=== PATIENT | male | born 1935 | race Caucasian/White ===

== ENCOUNTER 2022-05-07 14:41 | Inpatient (IN) | payer OTHER ==
--- OUTSIDE RECORDS SUMMARY | 2022-05-07 14:45 | XMS REPORT | Continuity of Care Document ---
:1935 Author Organization [facility] t Address [address] [place] [address] Care Team Providers Name Role Phone Norbert Castillo Primary Care Physician Norbert Castillo Attending Clinician Thu BRYAN Attending Clinician Marco Zee MD Attending Clinician Gerard Lee MD Attending Clinician Christin FERNANDEZ Attending Clinician Janel BRYAN, Russell Attending Clinician MD JANEL N. Attending Clinician Unavailable Genesis Attending Clinician Unavailable CHRISTIN Admitting Clinician Unavailable DO CHRISTIN Admitting Clinician Unavailable BAYLEE Admitting Clinician Unavailable Genesis Admitting Clinician Unavailable Payers Payer Name Policy Type Policy Number Effective Date Expiration Date S pio [facility] [place] - [id number] 2019 [employer] 00:00:00 (MEDICARE REPLACEMENT/ADVANT AGE - HMO) Problems Condition Condition Condition Status Onset Resolution Last Treating Co mments Source Name Details Category Date Date Treatment Clinician Date Tenderness Tenderness Disease Active 2020-10 Last M ethodi of left of left 0-[address] calf calf 00:00: t & Plan: Hospita 00 Formattin l g of this note might be different from the original. Mild calf tendernes s. Due to slow onset and symptoms today patient is instructe d to obtain ultrasoun d of lower extremity to rule out DVT. Agreeable with plan.Foll ow up imaging results. Pneumonia Pneumonia Disease Active Met hodi due to due to 5-20 st COVID-19 COVID-19 00:00: Hospit a virus virus 00 l Thrush Thrush Disease Active [facility] 1-04 st 00:00: Hospita 00 l Nutritiona Nutritiona Disease Active Last M ethodi l l 1-[address] deficiency deficiency 00:00: t & Plan: Hospita 00 Formattin l g of this note might be different from the original. At risk for nutrition al deficienc y. Tongue and dermatiti s symptoms could be due to pellagra or niacin deficienc y. Recommend ed B12 complex + zinc supplemen t. Follow up for recheck in 1 month TIA TIA Disease Active [facility] (transient (transient 2-18 st ischemic ischemic 00:00: Hospit a attack) attack) 00 l DDD DDD Disease Active [facility] (degenerat (degenerat 4-22 st dmitriy disc dmitriy disc 00:00: Hospit a disease), disease), 00 l lumbar lumbar Spinal Spinal Disease Active [facility] stenosis stenosis 3-28 st of lumbar of lumbar 00:00: Hosp neeta region region 00 l without without neurogenic neurogenic claudicati claudicati on on Cerebrovas Cerebrovas Disease Active 2017-10 M ethodi cular cular 2-29 st accident accident 00:00: Hospit a (CVA) (CVA) 00 l Ceruminosi Ceruminosi Disease Active 2017-10 M ethodi s, s, 105 st bilateral bilateral 00:00: Hosp neeta 00 l Bilateral Bilateral Disease Active 2017-10 Met hodi hand pain hand pain 1 st 00:00: Hospita 00 l Rheumatoid Rheumatoid Disease Active 2017-10 M ethodi factor factor 1 st positive positive 00:00: Hospit a 00 l Low Low Disease Active 2017-10 Methodi vitamin vitamin [address] B12 level B12 level 00:00: Hosp neeta 00 l High blood High blood Disease Active 2017-10 M ethodi triglyceri triglyceri [address] brenda brenda 00:00: Hospita 00 l Abnormal Abnormal Disease Active 2017-10 Metho di x-ray x-ray 10-17 st 00:00: Hospita 00 l Paresthesi Paresthesi Disease Active 2017-10 M ethodi as/numbnes as/numbnes 0- st s s 00:00: Hospita 00 l Abnormal Abnormal Disease Active 2017-10 Metho di glucose glucose 0 st 00:00: Hospita 00 l Screening Screening Disease Active 2017-10 Met hodi for for 0 prostate prostate 00:00: Hospit a cancer cancer 00 l CKD CKD Disease Active [facility] (chronic (chronic 05-10 kidney kidney 00:00: Hospita disease) disease) 00 l stage 3, stage 3, GFR 30-59 GFR 30-59 ml/min ml/min Actinic Actinic Disease Active Methodi dermatitis dermatitis 01-08 00:00: Hospita 00 l Calculus Calculus Disease Active Metho di of common of common 01-08 duct with duct with 00:00: Hosp neeta obstructio obstructio 00 l n n Essential Essential Disease Active Met hodi hypertensi hypertensi 01-08 on on 00:00: Hospita 00 l Visual Visual Disease Active [facility] field field 01-08 defect defect 00:00: Hospita 00 l Allergies, Adverse Reactions, Alerts Allergy Allergy Status Severity Reaction(s) Onset Inactive Treating Comm ents Source Name Type Date Date Clinician Katerin Mueller Active Rash 2013-10 cipro Method i xacin ty to 11-14 st adverse 00:00: Hospita reaction 00 l s to drug Family History Family Member Diagnosis Comments Start Date Stop Date Source Natural father Cancer [facility] Natural mother Cancer [facility] Paternal grandfather Cancer [facility] Paternal uncle Cancer [facility] Social History Social Habit Start Date Stop Date Quantity Comments Source Alcohol intake 2021-07-26 2021-07-26 Current [facility] 00:00:00 00:00:00 non-drinker of Hospital alcohol (finding) Tobacco use and 2016-05-03 2016-05-03 Former smokeless Met [facility] exposure 00:00:00 00:00:00 tobacco user Hospital History of 1991-12-10 Smoker [facility] tobacco use 00:00:00 Hospital Sex Assigned At [birth year] [facility] 00:00:00 00:00:00 Hospital Smoking Status Start Date Stop Date Source Ex-smoker 2016-05-03 00:00:00 2016-05-03 00:00:00 [facility] Medications Ordered Filled Start Stop Current Ordering Indication Dosage Frequency Signature Comments Components Source Medication Medication Date Date Medication? Clinician (SIG) Name Name ousmane 2020-10 Yes [id number] TAKE 1 Methodi n (LIPITOR) 2-[address] 80 MG 00:00: MOUTH Hospita tablet 00 DAILY l multivitami 2020-10 Yes 1{tbl} QD Take 1 Me thodi n with 0-[address] minerals 08:59: mouth Hospita tablet 38 daily. l aspirin 2020-10 Yes 325mg QD Take 325 Metho di (ECOTRIN) 0-[address] 325 MG 08:59: mouth Hospita enteric 38 daily. l coated tablet gabapentin 2020-10 Yes TAKE 1 Metho di (NEURONTIN) 0-[address] 300 mg 00:00: MOUTH Hospita capsule 00 THREE l TIMES DAILY gabapentin 2020- No TAKE 1 Meth anastasiya (NEURONTIN) 9- 10-12 CAPSULE BY s t 300 mg 00:00: 00:00 MOUTH Hospita capsule 00 :00 THREE l TIMES DAILY atorvastati 2020- No [id number] TAKE 1 Methodi n (LIPITOR) 8-09-[address] 80 MG 00:00: 00:00 MOUTH Hospita tablet 00 :00 DAILY l metFORMIN Yes [id number] TAKE 1 M ethodi (GLUCOPHAGE 6-[address] ) 500 mg 00:00: MOUTH Hospita tablet 00 TWICE l DAILY WITH MEALS predniSONE 2020- No 20mg QD Take 1 Meth anastasiya (DELTASONE) 03-03 06-02 tablet (20 s t 20 mg 00:00: 04:59 mg total) Hospit a tablet 00 :00 by mouth l daily for 10 days. azithromyci 2020- No Take 2 Met hodi n 5- 05-[address] (Zithromax 00:00: 04:59 (500 mg Hos mirella Z-Ezio) 250 00 :00 total) by l MG tablet mouth daily for 1 day, THEN 1 tablet (250 mg total) daily for 4 days. atorvastati 2020- No [id number] TAKE 1 Methodi n (LIPITOR) 4-29 08-[address] 80 MG 00:00: 00:00 MOUTH Hospita tablet 00 :00 DAILY l atorvastati 2020- No [id number] TAKE 1 Methodi n (LIPITOR) 11-[address] 80 MG 00:00: 17:06 MOUTH Hospita tablet 00 :25 DAILY l zinc 2021- No [id number] 50mg QD Take 1 Method i gluconate 10-16 tablet (50 st 50 mg 00:00: 05:59 mg total) Hospit a tablet 00 :00 by mouth l daily. b complex 2021- No [id number] 1{tbl} QD Take 1 Methodi vitamins (B 10-[address] Complex-Vit 00:00: 05:59 mouth Hosp neeta toribio B12) 00 :00 daily. l tablet gabapentin 2019-10- No 300mg Q.[id number] Take 1 [facility] (NEURONTIN) 06-[id number] 300 mg 00:00: 18:05 3D (300 mg Hospita capsule 00 :51 total) by l mouth 3 (three) times a day. blood-gluco 2019-10 Yes [id number] Check BS Methodi se meter 0-[address] kit 00:00: day Hospita 00 l metFORMIN 2020- No [id number] 500mg Q.5D Take 1 [facility] (GLUCOPHAGE 06-[address] ) 500 mg 00:00: 21:37 (500 mg Hospi ta tablet 00 :35 total) by l mouth 2 (two) times a day with meals. triamcinolo 2020- No [id number] Q.5D Apply Methodi ne 6-[address] (KENALOG) 00:00: 04:59 2 (two) Hosp neeta 0.1 % cream 00 :00 times a l day. cyclobenzap Yes [id number] Take one Methodi rine 2-[address] (FLEXERIL) 00:00: bedtime. Hos mirella 5 mg tablet 00 l Immunizations Ordered Immunization Filled Immunization Date Status Commen ts Source Name Name FLUZONE HIGH-DOSE PF 2020-08-14 Completed [facility] 00:00:00 Hospital Pneumococcal 2019-04-29 Completed [facility] Polysaccharide 00:00:00 Hospital Pneumococcal, 2014-08-13 Completed [facility] Unspecified 00:00:00 Hospital Vital Signs Vital Name Observation Time Observation Value Comments Source Systolic blood 2021-07-26 13:57:00 144 mm[Hg] [facility] pressure Diastolic blood 2021-07-26 13:57:00 78 mm[Hg] [facility] pressure Heart rate 2021-07-26 13:57:00 76 /min [facility] Body temperature 2021-07-26 13:57:00 36.72 Damaris [facility] Respiratory rate 2021-07-26 13:57:00 16 /min [facility] Body height 2021-07-26 13:57:00 172.7 cm [facility] Body weight 2021-07-26 13:57:00 80.74 kg [facility] BMI 2021-07-26 13:57:00 27.06 kg/m2 [facility] Oxygen saturation in 2021-07-26 13:57:00 98 /min [facility] Arterial blood by Pulse oximetry Procedures Procedure Date / Time Performing Clinician Source Performed XR SHOULDER 2+ VW RIGHT 2021-07-25 17:12:39 Corazon Rosario [facility] POC GLUCOSE 2021-03-03 21:21:00 [facility] SPUTUM CULTURE 2021-03-03 20:02:00 [facility] FUNG[facility] 2021-03-03 20:02:00 Norberto Cross [facility] ospital GRAM STAIN 2021-03-03 20:02:00 Norberto Cross [facility] POC GLUCOSE 2021-03-03 15:46:00 Juan Islas [facility] POC GLUCOSE 2021-03-03 12:13:00 [facility] CT CHEST WO CONTRAST 2021-03-03 01:47:43 Norberto Cross [facility] POC GLUCOSE 2021-03-03 01:44:00 [facility] POC GLUCOSE 2021-03-02 21:09:00 [facility] POC GLUCOSE 2021-03-02 15:54:00 [facility] POC GLUCOSE 2021-03-02 12:24:00 [facility] POC GLUCOSE 2021-03-02 01:25:00 [facility] POC GLUCOSE 2021-03-01 22:00:00 [facility] XR CHEST 1 VW PORTABLE 2021-03-01 18:32:05 [facility] BLOOD CULTURE, AEROBIC & 2021-03-01 17:51:00 [facility] ANAEROBIC HC COMPLETE BLD COUNT 2021-03-01 17:51:00 [facility] W/AUTO DIFF PROTHROMBIN TIME WITH INR 2021-03-01 17:51:00 [facility] COMPREHENSIVE METABOLIC 2021-03-01 17:51:00 [facility] PANEL TROPONIN 2021-03-01 17:51:00 [facility] B NATRIURETIC PEPTIDE 2021-03-01 17:51:00 [facility] ESTIMATED GFR 2021-03-01 17:51:00 [facility] BLOOD CULTURE, AEROBIC & 2021-03-01 17:45:00 [facility] ANAEROBIC MA CRITICAL CARE, E/M 2021-03-01 17:41:03 [facility] 30-74 MINUTES ECG ED PRELIMINARY 2021-03-01 17:41:03 [facility] INTERPRETATION COVID-19 QUALITATIVE 2021-03-01 17:41:00 [facility] RT-PCR ECG 12-LEAD 2021-03-01 17:31:53 Brian Bullock [facility] spital Plan of Care Planned Activity Planned Date Details Comments Source Future Scheduled 2021-10-03 COVID-19 VACCINE (1) [facility] Test 02:33:54 [code = COVID-19 VACCINE (1)] Future Scheduled 2021-10-03 SHINGLES VACCINES (#1) [facility] Test 02:33:54 [code = SHINGLES VACCINES (#1)] Future Scheduled 2021-10-03 65+ PNEUMOCOCCAL Methodi [facility] Test 02:33:54 VACCINE (2 of 2 - PCV13) [code = 65+ PNEUMOCOCCAL VACCINE (2 of 2 - PCV13)] Future Scheduled 2021-10-03 INFLUENZA VACCINE [facility] Test 02:33:54 [code = INFLUENZA VACCINE] Encounters Start End Encounter Admission Attending Care Care Encounter Source Date/Time Date/Time Type Type Clinicians Facility Department ID 2021-09-12 2021-09-12 Refjamie Ragland, 1.2.840.1 [id number] Method[facility] 00:00:00 00:00:00 Elio Toussaint 51953.1.1 171 s t 3.430.2.7 Hospit a .3.656096 l .8 2021-07-31 2021-07-31 Travel 1.2.840.1 1.2.196.293 [id number] Methodi 00:00:00 00:00:[address] 3.430.2.7 0.2.7.3.698 Ho spita .3.462443 084.8 l .8 2021-07-26 2021-07-26 Office Thu, 1.2.840.1 [id number] Methodi 08:51:58 09:23:27 Visit Ramo [address]6038.1.[address] 3.430.2.7 Hospit a .3.918771 l .8 2021-07-25 2021-07-25 [facility], 1.2.840.1 [id number] Methodi 11:29:00 15:50:00 Obed Lara [address].1.[address] 3.430.2.7 Hospit a .3.665056 l .8 2021-07-25 2021-07-25 Travel 1.2.840.1 1.2.529.930 [id number] Methodi 00:00:00 00:00:[address] 3.430.2.7 0.2.7.3.698 Ho spita .3.245188 084.8 l .8 2021-07-25 2021-07-25 Orders Andino, 1.2.840.1 [id number] Methodi 00:00:00 00:00:00 Only Ramo [address]82.1.[address] 3.430.2.7 Hospit a .3.217711 l .8 2021-07-24 2021-07-24 Refill Ellyn, 1.2.840.1 [id number] Methodi 00:00:00 00:00:00 Elio Toussaint 93661.1.1 102 s t 3.430.2.7 Hospit a .3.749069 l .8 2021-06-13 2021-06-13 Refill Ellyn, 1.2.840.1 [id number] Methodi 00:00:00 00:00:00 Elio Toussaint 74089.1.1 591 s t 3.430.2.7 Hospit a .3.967889 l .8 2021-05-22 2021-05-22 Refill Ellyn, 1.2.840.1 [id number] Methodi 00:00:00 00:00:00 Elio Toussaint 91373.1.1 244 s t 3.430.2.7 Hospit a .3.843323 l .8 2021-03-30 2021-03-30 Refill Ellyn, 1.2.840.1 [id number] Methodi 00:00:00 00:00:00 Elio Toussaint 28881.1.1 989 s t 3.430.2.7 Hospit a .3.862740 l .8 2021-03-01 2021-03-03 [facility] Lucho Lee 1.2.840.1 [id number] Methodi 12:22:00 20:15:00 James Wayne [address]457.1.[address] [facility] Juan N. 3.430.2.7 Hospita .3.095945 l .8 2021-02-08 2021-02-08 Refill Ellyn, 1.2.840.1 [id number] Methodi 00:00:00 00:00:00 Elio J. 21796.1.1 948 s t 3.430.2.7 Hospit a .3.992001 l .8 2020-10-16 2020-10-16 Outpatient ANDINO, [facility] [id number] 00:00:00 00:00:00 RAMO [address] 2020-08-21 2020-08-21 Outpatient ELLYN, [facility] [id number] 00:00:00 00:00:00 ELIO [address] 2020-08-14 2020-08-14 Outpatient ELLYN, [facility] [id number] 00:00:00 00:00:00 LEIO [address] 2020-03-16 2020-03-16 Outpatient ELLYN, [facility] [id number] 00:00:00 00:00:00 ELIO [address] 2019-12-07 2019-12-07 Outpatient ELLYN, [facility] [id number] 00:00:00 00:00:00 ELIO [address] 2019-11-30 2019-12-02 Outpatient BERBERIAN, [facility] [id number] [place] 00:00:00 00:00:00 JUAN [address] 2019-12-01 2019-12-01 Outpatient Miller_S_AH VFP VFP [id number] [id number] [facility] 07:21:00 07:21:00 72366 Family Practic e 2019-12-01 2019-12-01 Outpatient Miller_S_AH VFP VFP 795 [id number] [facility] 07:21:00 07:21:00 [id number] Family Practic e Results Test Description Test Time Test Comments Results Result Comments Source ECG 12 lead 2021-03-08 06:07:05 Test Item Value Reference Range Interpretation Comme nts Ventricular rate (test code = 253) Atrial rate (test code = 255) MA interval (test code = 266) QRSD interval (test code = 260) QT interval (test code = 264) QTC interval (test code = 265) P axis 1 (test code = 267) QRS axis 1 (test code = 268) T wave axis (test code = 270) EKG impression (test code = 273) Normal sinus rhythm-Inferior infar ct (cited on or before 08-JUN-2014)-Anterior infarct (cited on or before 08-JUN-2014)-Abnormal ECG-In automated comparison with ECG of 30-NOV-2019 07:51,-Nonspecific T wave abnormality no longer evident in Inferior leads- Beto PowellARS-CoV-2 (COVID-19) RNA [Presence] in Respiratory specimen by GALEN with probe [id number] 19:44:41 Test Item Value Reference Range Interpretation Comments SARS-CoV-2 (COVID-19) RNA Not detected Not-Detected [Presence] in Respiratory specimen by GALEN with probe detection (test code = 97044-6) Whether patient is employed in a healthcare setting (test code = 77239-5) Whether the patient has symptoms related to condition of interest (test code = 11038-9) Patient was hospitalized because of this condition (test code = 20632-8) Whether the patient was admitted to intensive care unit (ICU) for condition of interest (test code = 06300-3) Whether patient resides in a congregate care setting (test code = 69700-4)
[2022-05-07 15:52] LABS: Absolute Lymphocytes (CBC) 0.7 K/uL (0.7-4.9); Hematocrit 49.6 % (39.6-49.0); Lymphocytes % 7.3 % (15.3-44.8); MCV 92.4 fL (80-100); MPV 10.5 fL (7.6-11.3); RBC Red Blood Cell Count 5.37 M/uL (4.33-5.43)
[2022-05-07 16:13] LABS: Albumin 3.4 g/dL (3.4-5.0); Bilirubin Direct 0.5 mg/dL (0-0.2); Bilirubin Total 0.9 mg/dL (0.2-1.0); Magnesium 2.6 mg/dL (1.8-2.4); Potassium 3.8 mmol/L (3.5-5.1); Protein, Total 7.6 g/dL (6.4-8.2)
[2022-05-07 16:36] LABS: Troponin High Sensitivity 65.5 pg/mL (<58.9)
--- NOTE | 2022-05-07 16:51 | RAD REPORT ---
EXAM DESCRIPTION: RAD - Chest Single View - 05/07/2022 4:25 pm CLINICAL HISTORY: DYSPNEA, found down for unknown duration COMPARISON: None TECHNIQUE: AP portable chest image was obtained 05/07/2022 4:25 pm . FINDINGS: Lung volumes are low. No focal right lung field finding. Hazy opacification in the left ba se is seen partially obscuring the left hemidiaphragm. Upper left lung field is clear. Heart and vasculature are normal. No measurable pleural effusion and no pneumothorax. No acute bony abnormality seen. No acute aortic findings suspected. IMPRESSION: Limited portable study with suspected left lung base aspiration or infectious pneumonia
--- NOTE | 2022-05-07 16:52 | RAD REPORT ---
EXAM DESCRIPTION: RAD - Pelvis - 05/07/2022 4:25 pm CLINICAL HISTORY: possible fall, found on ground AMS COMPARISON: No comparisons TECHNIQUE: AP imaging of the pelvis was obtained. FINDINGS: No fracture of the bony pelvis. No fracture, dislocation or other acute hip joint finding. Each femoral neck is partially obscured due to overlapping intertrochanteric bony structures. No sig nificant SI joint findings. No soft tissue abnormality. IMPRESSION: Negative pelvis for acute or significant findings.
[2022-05-07] MEDS ORDERED: Ringers Lactate 2,000 ML IV ONE (17:03)
--- NOTE | 2022-05-07 17:03 | ER ---
Nurse's Notes [facility] Name: Bj Galo Age: 87 yrs Sex: Male : 1935 Arrival Date: 05/07/2022 Time: 14:43 Bed 14 Private MD: Diagnosis: Acute kidney failure, unspecified;Altered mental status, unspecified;Rhabdomyolysis;Pneumonia, unspecified organism;SARS-associated coronavirus as the cause of diseases classified elsewhere Presentation: 05/07 15:12 Chief complaint: Family was unable to contact him for a few days, found down on floor hb this morning. Last known normal unknown. AOx4 at baseline, currently alert in wheelchair but unable to answer questions. Coronavirus screen: At this time, the client does not indicate any symptoms associated with coronavirus-19. Ebola Screen: No symptoms or risks identified at this time. 15:12 Method Of Arrival: Wheelchair hb 15:16 Onset of symptoms was May 07, 2022. hb 15:16 Acuity: DENNIS 2 hb 19:00 Initial Sepsis Screen: Does the patient meet any 2 criteria? No. Patient's initial ke1 sepsis screen is negative. Does the patient have a suspected source of infection? No. Patient's initial sepsis screen is negative. 19:38 Risk Assessment: Do you want to hurt yourself or someone else? Patient reports no ke1 desire to harm self or others. Historical: - Allergies: 15:16 No Known Allergies; hb - Social history:: Smoking status: unknown. Screenin:16 Abuse screen: Denies threats or abuse. Nutritional screening: No deficits noted. tp1 Tuberculosis screening: No symptoms or risk factors identified. Fall Risk Fall in past 12 months (25 points). IV access (20 points). Ambulatory Aid- None/Bed Rest/Nurse Assist (0 pts). Gait- Weak (10 pts.). Mental Status- Overestimates/Forgets Limitations (15 pts.). Total Vu Fall Scale indicates High Risk Score (45 or more points). Fall prevention measures have been instituted. Side Rails Up X 2 Placed Close to Nursing Station Family Present and informed to notify staff if the need to leave the bedside As available patient and family educated on Fall Prevention Program and Strategies. Assessment: 15:16 General: Appears in no apparent distress. Behavior is calm, drowsy, knows name and tp1 place, but unable to verbalize date of or situation. response to yes or no questions. . 15:16 Pain: Denies pain. Neuro: Parker Agitation-Sedation Scale (RASS): -1 Drowsy Level of tp1 Consciousness is confused, Oriented to person, place, Jack Winder are unable to assess due to PT appearing drowsy . Weakness in bilateral leg(s) able to raise bilateral arms. Gait is unable to assess due to PT appearing drowsy. Speech unable to assess due to PT appearing drowsy . unable to assess due to PT appearing drowsy . Pupils are PERRLA. Cardiovascular: Patient's skin is warm and dry. Respiratory: Airway is patent Respiratory effort is even, unlabored. GI: Abdomen is flat, distended. : Parent/caregiver report the patient having found in a puddle of urine at home. EENT: No signs and/or symptoms were reported regarding the EENT system. Derm: Skin is pink, warm \T\ dry. abrasion noted on right elbow and back of head. Musculoskeletal: Range of motion: limited in bilateral legs. 16:23 Reassessment: Patient appears in no apparent distress at this time. No changes from tp1 previously documented assessment. Patient and/or family updated on plan of care and expected duration. Pain level reassessed. Patient is alert, oriented x 3, equal unlabored respirations, skin warm/dry/pink. 17:25 Reassessment: Patient appears in no apparent distress at this time. No changes from tp1 previously documented assessment. Patient and/or family updated on plan of care and expected duration. Pain level reassessed. Patient is alert, oriented x 3, equal unlabored respirations, skin warm/dry/pink. received VO from Mauricio FAUSTIN to insert casper. 18:06 Reassessment: resting with eyes closed. appears to be in no distress. respirations even tp1 and unlabored. hospitalist at bedside speaking to family. 18:13 Reassessment: pt umair Patrick PHONE NUMBER [phone]. vg1 19:11 Reassessment: Patient appears in no apparent distress at this time. No changes from tp1 previously documented assessment. Patient and/or family updated on plan of care and expected duration. Pain level reassessed. Patient is alert, oriented x 3, equal unlabored respirations, skin warm/dry/pink. warm blankets provided. Vital Signs: 15:12 BP 121 / 75; Pulse 83; Resp 16; Temp 98.2(TE); Pulse Ox 96% on R/A; hb 15:16 BP 94 / 75; Pulse 82; Resp 80; Pulse Ox 94% on R/A; tp1 15:30 BP 145 / 68; Pulse 76; Resp 18; Pulse Ox 92% on R/A; tp1 16:15 BP 118 / 74; Pulse 77; Resp 26; Pulse Ox 93% on R/A; tp1 17:30 BP 137 / 55; Pulse 68; Resp 17; Pulse Ox 94% on R/A; tp1 19:42 BP 119 / 61; Pulse 72; Resp 14; Pulse Ox 95% on R/A; ke1 [place] Coma Score: 15:36 Eye Response: to voice(3). Verbal Response: oriented(5). Motor Response: obeys jr8 commands(6). Total: 14. ED Course: 14:37 Initial lab(s) drawn, by me, sent to lab. First set of blood cultures drawn. Missed tp1 attempt(s): 20 gauge in right antecubital area. Bleeding controlled, band aid applied, catheter tip intact. 14:43 Patient arrived in ED. am2 15:16 [facility] jr8 15:16 Paddy Razo MD is Attending Physician. jr8 15:16 Triage completed. hb 15:16 Arm band placed on. hb 15:24 Placed in gown. Bed in low position. Call light in reach. Side rails up X 1. Door mb7 closed. Noise minimized. Warm blanket given. 15:24 Client placed on continuous cardiac and pulse oximetry monitoring. NIBP monitoring mb7 applied. bit gatherer on. 15:28 Alma Poon, RN is Primary Nurse. vg1 15:35 EKG done, by ED staff, reviewed by Qasim FAUSTIN. em1 15:57 Missed attempt(s): 20 gauge in left antecubital area. Bleeding controlled, band aid tp1 applied, catheter tip intact. 16:23 Primary Nurse role handed off by Alma Poon, RN tp1 16:23 Jocelyn Ramachandran, MAXIMILIANO is Primary Nurse. tp1 16:26 XRAY Chest (1 view) In Process Unspecified. EDMS 16:26 XRAY Pelvis In Process Unspecified. EDMS 16:42 Inserted saline lock: 22 gauge in left antecubital area, using aseptic technique. vg1 16:58 CT Head C Spine In Process Unspecified. EDMS 16:58 CT Abd/Pelvis - Without Contrast In Process Unspecified. EDMS 17:01 Scot Max is Hospitalizing Provider. jr8 17:45 Casper cath inserted, using sterile technique, 16 Fr., by mn, balloon inflated, to tp1 gravity drainage, urine specimen collected. other 400 mL joelle colored urine drained. 05/08 03:01 Notified Nurse Practitioner and/or Physician Hydrographer of a critical lab result(s), bb DDimer of [phone] More FAUSTIN notified. 03:14 Notified Nurse Practitioner and/or Physician Hydrographer of a critical lab result(s), bb troponin of 70 More FAUSTIN notified. 03:26 Notified Nurse Practitioner and/or Physician Hydrographer of a critical lab result(s), CPK bb [id number], AST 418 More FAUSTIN notified. Administered Medications: 05/07 15:19 Drug: Ringers - Lactated Ringers Solution 1000 ml Route: IV; Rate: bolus; Site: left tp1 antecubital; 19:47 Follow up: IV Status: Completed infusion ke1 18:29 Drug: Rocephin (cefTRIAXone) 1 grams Route: IV; Rate: calculated rate; Site: left tp1 antecubital; 18:49 Follow up: Response: No adverse reaction; IV Status: Completed infusion; IV Intake: tp1 100ml 18:50 Drug: Zithromax (azithromycin) 500 mg Route: IVPB; Infused Over: 1 hrs; Site: left tp1 antecubital; 19:48 Follow up: Response: No adverse reaction; IV Status: Completed infusion ke1 19:48 Drug: Ringers - Lactated Ringers Solution 1000 ml Route: IV; Rate: 150 ml/hr; Site: ke1 left antecubital; Intake: 18:49 IV: 100ml; Total: 100ml. tp1 Outcome: 17:02 Decision to Hospitalize by Provider. jr8 05/08 17:42 Patient left the ED. iw Signatures: Dispatcher [employer] Sandra Guevara RN RN bb Jazzmine Brice RN Erik Do em1 Qaism Martínez PA PA jr8 Kathleen Garzon RN Daphne Cali am2 Alma Poon RN RN vg1 Jocelyn Ramachandran RN RN tp1 Shelley Dorsey mb7 Dawn Vargas, RN RN ke1 Corrections: (The following items were deleted from the chart) 05/07 16:31 16:15 BP 88 / 78; Pulse 77bpm; Resp 26bpm; Pulse Ox 93% RA; tp1 tp1 17:03 15:16 Derm: Skin is pink, warm \T\ dry. tp1 tp1 17:31 15:22 Ringers - Lactated Ringers Solution 1000 ml IV at 150 ml/hr in left antecubital tp1 tp1 18:02 15:16 Neuro: Level of Consciousness is awake, alert, confused, Oriented to person, tp1 place, Weakness in bilateral leg(s) able to raise bilateral arms. tp1 18:04 17:25 Reassessment: Patient appears in no apparent distress at this time. No changes tp1 from previously documented assessment. Patient and/or family updated on plan of care and expected duration. Pain level reassessed. Patient is alert, oriented x 3, equal unlabored respirations, skin warm/dry/pink. tp1 18:35 15:16 General: Appears in no apparent distress. comfortable, Behavior is calm, knows tp1 name and place, but unable to verbalize date of or situation. response to yes or no questions. . tp1 18:35 15:16 Neuro: Level of Consciousness is awake, alert, confused, Oriented to person, tp1 place, Jack Winder are unable to assess due to PT appearing drowsy . Weakness in bilateral leg(s) able to raise bilateral arms. Gait is unable to assess due to PT appearing drowsy. Speech unable to assess due to PT appearing drowsy . unable to assess due to PT appearing drowsy . Pupils are PERRLA, tp1 19:14 18:32 General: tp1 tp1 19:18 15:16 General: Appears in no apparent distress. Behavior is calm, drowsy, knows name tp1 and place, but unable to verbalize date of or situation. response to yes or no questions. . tp1 19:18 15:16 Neuro: Level of Consciousness is confused, Oriented to person, place, Jack Winder are tp1 unable to assess due to PT appearing drowsy . Weakness in bilateral leg(s) able to raise bilateral arms. Gait is unable to assess due to PT appearing drowsy. Speech unable to assess due to PT appearing drowsy . unable to assess due to PT appearing drowsy . Pupils are PERRLA, tp1
--- NOTE | 2022-05-07 17:03 | EDPHYS ---
Physician Documentation [facility] Name: Bj Galo Age: 87 yrs Sex: Male : 1935 Arrival Date: 05/07/2022 Time: 14:43 Bed 14 Private MD: ED Physician Paddy Razo HPI: 05/07 15:36 This 87 yrs old Male presents to ER via Wheelchair with complaints of Altered Mental jr8 Status. 15:36 The patient presents with confusion, decreased responsiveness. Onset: The jr8 symptoms/episode began/occurred at an unknown time. Possible causes: unknown. Associated signs and symptoms: The patient has no apparent associated signs or symptoms. Current symptoms: In the emergency department the patient's symptoms are unchanged from the initial presentation. Patient's baseline: Neuro: alert and fully oriented, Motor: no deficits, Ambulation: walks without assistance, Speech: normal. The patient has not experienced similar symptoms in the past. The patient has not recently seen a physician. Family stated that they last saw him about 4 to 5 days ago. Usually is very independent and has no neurologic deficits. Stated that he has had strokes in the past but again without deficits. They found patient on the ground with urine and raisin bran cereal next to him. Patient was negative at the time. Unknown how long he had been down. Patient altered and confused. Upon arrival patient alert to person and place but slow to respond.. Historical: - Allergies: 15:16 No Known Allergies; hb - Social history:: Smoking status: unknown. ROS: 15:36 Unable to obtain ROS due to altered mental status. jr8 Exam: 15:36 Eyes: Pupils equal round and reactive to light, extra-ocular motions intact. Lids and jr8 lashes normal. Conjunctiva and sclera are non-icteric and not injected. Cornea within normal limits. Periorbital areas with no swelling, redness, or edema. ENT: Nares patent. No nasal discharge, no septal abnormalities noted. Tympanic membranes are normal and external auditory canals are clear. Oropharynx with no redness, swelling, or masses, exudates, or evidence of obstruction, uvula midline. Mucous membranes moist. Neck: Trachea midline, no thyromegaly or masses palpated, and no cervical lymphadenopathy. Supple, full range of motion without nuchal rigidity, or vertebral point tenderness. No Meningismus. Cardiovascular: Regular rate and rhythm with a normal S1 and S2. No gallops, murmurs, or rubs. Normal PMI, no JVD. No pulse deficits. Respiratory: Lungs have equal breath sounds bilaterally, clear to auscultation and percussion. No rales, rhonchi or wheezes noted. No increased work of breathing, no retractions or nasal flaring. Abdomen/GI: Soft, non-tender, with normal bowel sounds. No distension or tympany. No guarding or rebound. No evidence of tenderness throughout. Skin: Warm, dry with normal turgor. Normal color with no rashes, no lesions, and no evidence of cellulitis. MS/ Extremity: Pulses equal, no cyanosis. Neurovascular intact. Full, normal range of motion. 15:36 Neuro: Orientation: to person, place, Mentation: able to follow commands, slow to respond, Memory: immediate memory is intact, remote memory is impaired, recent memory is impaired, Cranial nerves: extraocular movements are intact, Facial palsy and sensory deficits are absent. Speech is clear and appropriate. Motor: moves all fours, Sensation: no obvious gross deficits, seizure activity, is not displayed by the patient, Abnormal movements: there are no abnormal movements. 15:43 ECG was reviewed by the Attending Physician. jr8 Vital Signs: 15:12 BP 121 / 75; Pulse 83; Resp 16; Temp 98.2(TE); Pulse Ox 96% on R/A; hb 15:16 BP 94 / 75; Pulse 82; Resp 80; Pulse Ox 94% on R/A; tp1 15:30 BP 145 / 68; Pulse 76; Resp 18; Pulse Ox 92% on R/A; tp1 16:15 BP 118 / 74; Pulse 77; Resp 26; Pulse Ox 93% on R/A; tp1 17:30 BP 137 / 55; Pulse 68; Resp 17; Pulse Ox 94% on R/A; tp1 19:42 BP 119 / 61; Pulse 72; Resp 14; Pulse Ox 95% on R/A; ke1 [place] Coma Score: 15:36 Eye Response: to voice(3). Verbal Response: oriented(5). Motor Response: obeys jr8 commands(6). Total: 14. MDM: 15:16 Patient medically screened. jr8 16:59 Data reviewed: vital signs, nurses notes, lab test result(s), EKG, radiologic studies, [facility] CT scan, plain films. Data interpreted: Pulse oximetry: on room air is 93 %. Interpretation: normal. Counseling: I had a detailed discussion with the patient and/or guardian regarding: the historical points, exam findings, and any diagnostic results supporting the discharge/admit diagnosis, lab results, radiology results, the need for further work-up and treatment in the hospital. 05/07 15:31 Order name: Basic Metabolic Panel; Complete Time: 16:44 [facility] 05/07 15:31 Order name: CBC with Diff; Complete Time: 16:02 [facility] 05/07 15:31 Order name: LFT's; Complete Time: 16:44 [facility] 05/07 15:31 Order name: Magnesium; Complete Time: 16:44 [facility] 05/07 15:31 Order name: Troponin HS; Complete Time: 16:44 [facility] 05/07 15:31 Order name: Lactate; Complete Time: 16:44 [facility] 05/07 15:31 Order name: CK; Complete Time: 16:44 [facility] 05/07 15:31 Order name: Blood Culture Adult (2) [facility] 05/07 15:31 Order name: Urine Microscopic Only; Complete Time: 18:15 [facility] 05/07 15:33 Order name: AMMONIA; Complete Time: 16:16 [facility] 05/07 17:02 Order name: SARS-COV-2 Antigen Rapid; Complete Time: 17:55 05/07 17:55 Order name: Urine Dipstick-Ancillary; Complete Time: 17:58 [facility] 05/07 19:42 Order name: Lactate Sepsis 2 HR Follow-up; Complete Time: 21:59 [facility] 05/07 21:33 Order name: Glucose, Ancillary Testing; Complete Time: 21:59 [facility] 05/07 23:19 Order name: Troponin High Sensitivity; Complete Time: 03:01 05/08 05:57 Order name: Troponin High Sensitivity; Complete Time: 10:05 [facility] 05/08 05:57 Order name: CBC with Automated Diff; Complete Time: 10:05 05/08 05:57 Order name: D-Dimer; Complete Time: 10:05 [facility] 05/08 05:57 Order name: Comprehensive Metabolic Panel; Complete Time: 10:05 [place] 05/08 05:57 Order name: Phosphorus; Complete Time: 10:05 [facility] 05/08 05:57 Order name: Creatine Phosphokinase; Complete Time: 10:05 [facility] 05/08 05:57 Order name: Lipid Profile; Complete Time: 10:05 [facility] 05/08 05:57 Order name: C-Reactive Protein; Complete Time: 10:05 [facility] 05/08 05:57 Order name: Magnesium; Complete Time: 10:05 [facility] 05/08 05:57 Order name: Thyroid Stimulating Hormone; Complete Time: 10:05 [facility] 05/08 05:57 Order name: Ferritin; Complete Time: 10:05 [facility] 05/08 06:24 Order name: Glucose, Ancillary Testing; Complete Time: 10:[place] 05/08 10:22 Order name: Glucose, Ancillary Testing; Complete Time: 10:MS 05/08 12:53 Order name: Glucose, Ancillary Testing; Complete Time: 13:18 [place] 05/08 17:23 Order name: Glucose, Ancillary Testing; Complete Time: 17:32 [place] 05/07 15:31 Order name: XRAY Chest (1 view); Complete Time: 16:58 05/07 15:31 Order name: EKG; Complete Time: 15:32 05/07 15:31 Order name: Cardiac monitoring; Complete Time: 15:59 05/07 15:31 Order name: EKG - Nurse/Tech; Complete Time: 15:35 05/07 15:31 Order name: IV Saline Lock; Complete Time: 16:43 05/07 15:31 Order name: Labs collected and sent; Complete Time: 15:59 05/07 15:31 Order name: O2 Per Protocol; Complete Time: 15:59 05/07 15:31 Order name: O2 Sat Monitoring; Complete Time: 15:59 05/07 15:31 Order name: Urine Dipstick-Ancillary (obtain specimen); Complete Time: 18:03 05/07 15:31 Order name: CT Head C Spine; Complete Time: 17:10 05/07 15:31 Order name: XRAY Pelvis; Complete Time: 16:58 05/07 16:45 Order name: CT Abd/Pelvis - Without Contrast; Complete Time: 17:55 05/07 18:03 Order name: Judith; Complete Time: 18:03 vg1 05/08 07:16 Order name: FAUSTO; Complete Time: 10:05 EDMS EC:43 Rate is 76 beats/min. Rhythm is regular, Sinus Rhythm. AL interval is normal at 148 jr8 msec. QRS interval is normal at 96 msec. QT interval is normal at 454 msec. Q waves are Present in leads III, aVF. T waves are Flattened in leads I, aVL, V6. No ST changes noted. Clinical impression: NSR w/ Non-specific ST/T Changes. Interpreted by me. Reviewed by me. Administered Medications: 15:19 Drug: Ringers - Lactated Ringers Solution 1000 ml Route: IV; Rate: bolus; Site: left tp1 antecubital; 19:47 Follow up: IV Status: Completed infusion ke1 18:29 Drug: Rocephin (cefTRIAXone) 1 grams Route: IV; Rate: calculated rate; Site: left tp1 antecubital; 18:49 Follow up: Response: No adverse reaction; IV Status: Completed infusion; IV Intake: tp1 100ml 18:50 Drug: Zithromax (azithromycin) 500 mg Route: IVPB; Infused Over: 1 hrs; Site: left tp1 antecubital; 19:48 Follow up: Response: No adverse reaction; IV Status: Completed infusion ke1 19:48 Drug: Ringers - Lactated Ringers Solution 1000 ml Route: IV; Rate: 150 ml/hr; Site: ke1 left antecubital; Disposition Summary: 05/07/22 17:02 Hospitalization Ordered Hospitalization Status: Inpatient Admission jr8 Provider: Scot Max Condition: Fair jr8 Problem: new jr8 Symptoms: are unchanged jr8 Bed/Room Type: Standard 8 Location: Telemetry/MedSurg (Inpatient)(05/08/22 15:14) bd Room Assignment: 422(05/08/22 15:14) bd Diagnosis - Acute kidney failure, unspecified jr8 - Altered mental status, unspecified jr8 - Rhabdomyolysis jr8 - Pneumonia, unspecified organism jr8 - SARS-associated coronavirus as the cause of diseases classified elsewhere jr8 Forms: - Medication Reconciliation Form jr8 - SBAR form jr8 Signatures: Dispatcher [employer] EDMS Chana Yang Josh, PA PA jr8 Kathleen Garzon, RN RN Kadeem Trevino RN RN jl7 Alma Poon, RN RN vg1 Jocelyn Ramachandran RN RN tp1 Dawn Vargas RN RN ke1 Arianne Peace PA PA sb3 Corrections: (The following items were deleted from the chart) 19:05 17:02 Telemetry/MedSurg (Inpatient) [facility] jl7 19:05 17:02 [facility] jl7 05/08 15:14 05/07 19:05 [facility] ER [address] 05/08 15:14 05/07 [facility]
--- NOTE | 2022-05-07 17:08 | RAD REPORT ---
EXAM DESCRIPTION: CT - [id number] - 05/07/2022 4:56 pm CLINICAL HISTORY: AMS COMPARISON: No comparisons TECHNIQUE: Axial 5 mm thick images of the head were obtained. Axial 2 mm thick images of the cervic al spine were obtained with sagittal and coronal reconstruction images generated and reviewed. All CT scans are performed using dose optimization technique as appropriate and may include automated exposure control or mA/KV adjustment according to patient size. FINDINGS: No intracranial hemorrhage, mass, edema or acute intracranial finding. No acute cortical b ased infarction. No cortical edema or sulcal effacement. Moderate severity atrophy is present primari ly involving each frontal lobe. Ventricles are in proportion to volume loss. Chronic ischemic changes mild for age. Dense arterial tree calcifications are present. No extra-axial fluid collections. Mast oid air cells and paranasal sinuses are clear. No globe or orbit abnormality seen. Cervical body height and alignment are normal. Mild C4-5 disc space narrowing. Moderate disc space na rrowing C5-6 and C6-7. Facet joint degenerative changes are present. Advanced right-sided facet joint degenerative change causes significant bony foraminal stenosis. Mild bony foraminal encroachment at C4-5 with moderate severity bilateral C5-6 and C6-7 foraminal stenosis. No fracture or acute bony abn ormality. Central canal detail is inherently limited. No paraspinal mass or hematoma. IMPRESSION: Moderate severity atrophy and mild chronic ischemic changes are present. No acute intrac ranial finding identifiable. No fracture or acute cervical spine finding. Degenerative changes are present with multilevel bony fo raminal stenosis.
--- NOTE | 2022-05-07 17:13 | RAD REPORT ---
EXAM DESCRIPTION: CT - Abdomen Pelvis Wo Contrast - 05/07/2022 4:56 pm CLINICAL HISTORY: AMS, Elevated LFTs COMPARISON: No comparisons TECHNIQUE: Axial [address] imaging of the abdomen and pelvis was performed without IV contrast. No IV contrast was given because of allergy, abnormal renal function, patient refusal or physician re quest. No oral contrast administered peer All CT scans are performed using dose optimization technique as appropriate and may include automated exposure control or mA/KV adjustment according to patient size. FINDINGS: Motion degradation limits the lung base assessment. Prominent posterior calcified pleural plaques present without mass component. Fibrotic stranding is seen. No cardiomegaly or pericardial ef fusion. The liver, spleen and pancreas show no suspicious findings on non-contrast imaging. Cholecystectomy c lips are present. No biliary tree dilatation. No hydronephrosis or suspicious renal mass. A 3.2 centimeter low-density mass in the lateral mid righ t kidney is almost certainly a cyst. There is a 7 centimeter and 3.6 centimeter homogeneous fluid att enuation mass projecting from the lower pole left kidney. Again these are almost certainly cysts. No significant adrenal finding. Isodense renal masses and pyelonephritis cannot be excluded in the absen ce of IV contrast. The urinary bladder is without significant finding. No dilated bowel loops or bowel wall thickening. Moderate stool volume distends the rectum to 5-6 cm. There is prominent sigmoid diverticulosis without diverticulitis. No free air, free fluid or inflamm atory stranding. No mass or bulky lymphadenopathy. No omental thickening. Small fat filled left ingui nal hernia is present. Disc and bone degenerative changes are present. Dense arterial tree calcifications are present. There is an irregularly-shaped approximately 4.5 cm i nfrarenal abdominal aortic aneurysm. No centrally displaced calcifications. Aneurysm is not fully ass essed on a noncontrast study. There is no fluid or stranding in the adjacent fatty tissues. IMPRESSION: Non-contrast enhanced CT abdomen and pelvis imaging show no acute finding. Patient does have an irregularly-shaped 4.5 cm infrarenal abdominal aortic aneurysm. The aneurysm is not fully assessed on a noncontrast study. No periaortic abnormality to suggest leakage or rupture. Full assessment is limited is the absence of IV contrast.
[2022-05-07] MEDS ORDERED: LIDOCAINE VISCOUS 2% SOLN 15 ML UDC ONE (17:46)
[2022-05-07 17:49] LABS: SARS-CoV-2 Antigen Rapid Res Positive (Negative)
[2022-05-07 17:55] LABS: Urine Blood 2+ (Negative); Urine Glucose Negative (Negative); Urine Protein 1+ (Negative); Urine Specific Gravity >=1.030 (1.005-1.030); Urine pH 5.5 (5.0-7.0)
[2022-05-07 18:07] LABS: Urine Bacteria <20 /HPF (<20); Urine Mucus 1+ /HPF (None Seen)
[2022-05-07] MEDS ORDERED: NA CHLORIDE 0.9% 100 ML ONE (18:31)
[2022-05-07] MEDS ORDERED: CEFTRIAXONE 1000 MG/VIAL ONE (18:31)
[2022-05-07] MEDS ORDERED: AZITHROMYCIN 500 MG INJ IVPB ONE (18:31)
[2022-05-07] MEDS ORDERED: NA CHLORIDE 0.9% 250 ML ONE (18:32)
--- NOTE | 2022-05-07 18:34 | P.HP ---
Certification for Inpatient Patient admitted to: Inpatient With expected LOS: >2 Midnights Practitioner: I am a practitioner with admitting privileges, knowledge of patient current condition, hospital course, and medical plan of care. Services: Services provided to patient in accordance with Admission requirements found in Title 42 Section 412.3 of the Code of Federal Regulations Patient History Date of Service: 05/07/22 Reason for admission: Fall, AMS History of Present Illness: 79-year-old gentleman with a history of diabetes mellitus on metformin and hyperlipidemia was brought to the emergency department for evaluation for fall. Patient's son by his bedside gave the history. According to the son family tried reaching him by phone call for 3 days but no answer. Sons girlfriend later checked on him and found him on the floor, covered with urine, unresponsive. EMS was called and patient was brought to the emergency department. Blood sugar when EMS found him was around 130. No witnessed seizures. According to family, patient at baseline interact and communicate appropriately. He lives alone. Family mentioned that they recently noted he has been having memory issues. Work-up in the emergency department demonstrated markedly elevated CK, acute renal failure indicating rhabdomyolysis. Chest x- ray and CT scan suggest possible bibasilar pneumonia. He has no leukocytosis, he is normotensive, no recorded fever and does not meet criteria for sepsis. COVID-19 screen came back positive. Patient is hospitalized for further management of rhabdomyolysis with LARRY and COVID-19 pneumonia. - Past Medical/Surgical History -: Gmi-[id number] diabetes -: Hyperlipidemia Past Surgical History: Unable to obtain (On) - Family History Family History: Reviewed- Non-Contributory - Social History Alcohol use: No CD- Drugs: No Place of Residence: Home Review of Systems is unable to be obtained (Due to altered mental status) Other: No reported diarrhea, no reported vomiting. Physical Examination - Physical Exam General: Disheveled, Unresponsive HEENT: PERRLA, Other (Dry mucous membrane), EOMI, Sclerae nonicteric Neck: Supple, JVD not distended Respiratory: Clear to auscultation bilaterally, Normal air movement Cardiovascular: No edema, Regular rate/rhythm, Normal S1 S2 Capillary refill: <2 Seconds Gastrointestinal: Normal bowel sounds, Soft and benign, Non-distended, No tenderness Musculoskeletal: No swelling, No tenderness Integumentary: No rashes, No erythema, No cyanosis Neurological: Other (Patient withdraws all extremities to touch.) Lymphatics: No axilla or inguinal lymphadenopathy - Studies Laboratory Data (last 24 hrs) 05/07/22 15:37: WBC 9.0, Hgb 16.2, Hct 49.6 H, Plt Count 173 05/07/22 15:37: Sodium 141, Potassium 3.8, BUN 53 H, Creatinine 1.63 H, Glucose 126 H, Magnesium 2.6 H, Total Bilirubin 0.9, AST 656 H*, ALT 161 H, Alkaline Phosphatase 124 H Assessment and Plan - Problems (Diagnosis) (1) Rhabdomyolysis Current Visit: Yes Status: Acute (2) Pneumonia due to COVID-19 virus Current Visit: Yes Status: Acute (3) Acute renal failure Current Visit: Yes Status: Acute (4) Diabetes mellitus type 2 in nonobese Current Visit: Yes Status: Acute (5) Metabolic encephalopathy Current Visit: Yes Status: Acute - Plan Admit patient to the medical floor. Telemetry Aggressive IV hydration with D5 half-normal saline Monitor CK levels for improvement Monitor renal function. Imaging indicated bilateral infiltrates. We will treat for COVID-pneumonia with IV steroid. IV antibiotics. Check inflammatory markers. Keep n.p.o. due to AMS. Insulin sliding scale for glucose management. Follow blood cultures obtained in the ED. Hold oral medications. - Advance Directives Does patient have a Living Will: No Does patient have a Durable POA for Healthcare: No
[2022-05-07] MEDS: INSULIN -REGULAR HUMAN 50 UNIT/0.5 ML ML SQ SCH (21:06)
[2022-05-07] MEDS ORDERED: ACETAMINOPHEN 650MG/RECT SUPP PR PRN (21:06)
[2022-05-07] MEDS ORDERED: ONDANSETRON 4 MG/2 ML VIAL IV PRN (21:06)
[2022-05-07] MEDS ORDERED: FAMOTIDINE 20 MG/2 ML VIAL IV SCH (21:06)
[2022-05-07] MEDS: METHYLPREDNISOLONE 40 MG INJ IV SCH (23:00)
[2022-05-07] MEDS ORDERED: FAMOTIDINE 20 MG/2 ML VIAL IV ONE ×2 (23:00→23:18)
[2022-05-07] MEDS ORDERED: D5 0.45 NS 1,000 ML IV ONE (23:18)
[2022-05-07] MEDS ORDERED: METHYLPREDNISOLONE 40 MG INJ ONE (23:18)
[2022-05-07] MEDS: D5 0.45 NS 1,000 ML IV SCH (23:20)
[2022-05-08] MEDS: HEPARIN 5000 UNIT/ML 1 ML VIAL SQ SCH ×3 (01:00→17:00)
[2022-05-08] MEDS ORDERED: HEPARIN 5000 UNIT/ML 1 ML VIAL ONE ×2 (01:41→11:05)
[2022-05-08 02:50] LABS: Absolute Lymphocytes (CBC) 0.4 K/uL (0.7-4.9); Hematocrit 38.7 % (39.6-49.0); Lymphocytes % 6.6 % (15.3-44.8); MCV 90.5 fL (80-100); MPV 10.4 fL (7.6-11.3); RBC Red Blood Cell Count 4.27 M/uL (4.33-5.43)
[2022-05-08 04:45] LABS: Albumin 2.5 g/dL (3.4-5.0); Bilirubin Total 0.4 mg/dL (0.2-1.0); C-Reactive Protein 30.4 mg/L (<3.00); Ferritin 342.7 ng/mL (26-388); Magnesium 2.1 mg/dL (1.8-2.4); Phosphorus 2.2 mg/dL (2.5-4.9); Potassium 3.7 mmol/L (3.5-5.1); Protein, Total 5.6 g/dL (6.4-8.2); Thyroid Stimulating Hormone 2.4 uIU/mL (0.360-3.740)
[2022-05-08] MEDS: D5 0.45 NS 1,000 ML IV SCH ×3 (05:06→20:50)
--- NOTE | 2022-05-08 06:40 | EKG ---
Test Date: 2022-05-07 Test Time: 15:33:56 Sand Screener Operator: CYNTHIA MEASUREMENT RESULTS: Intervals: Rate: 76 DE: 148 QRSD: 96 QT: 404 QTc: 454 [place]: P: 17 DE: 148 QRS: -13 T: 64 INTERPRETIVE STATEMENTS: Sinus rhythm with occasional premature ventricular complexes and premature atrial complexes Low voltage QRS Inferior infarct, age undetermined Cannot rule out Anterior infarct, age undetermined Abnormal ECG No previous ECG available for comparison Electronically Signed On 05-08-22 06:38:37 CDT by Michael Light
--- NOTE | 2022-05-08 07:16 | RAD REPORT ---
EXAM DESCRIPTION: RAD - Chest Pa And Lat (2 Views) - 05/08/2022 6:08 am CLINICAL HISTORY: Pneumonia COMPARISON: CT abdomen 05/07/2022 ; portable 05/07/2022 TECHNIQUE: Frontal and lateral views of the chest were obtained. FINDINGS: The lungs are better aerated than on the 05/07 exam. No focal consolidation. Retrocardiac left base is better aerated but markings still remain prominent. The prior day CT abdomen study inclu ded the left lung base for no definitive infiltrate was seen. Heart size is normal and central vasculature is within normal limits. No pleural effusion or pneumot horax seen. No acute bony finding noted. No aortic abnormality. IMPRESSION: Improved aeration of the lung mcclain including the retrocardiac left base.
[2022-05-08] MEDS: INSULIN -REGULAR HUMAN 50 UNIT/0.5 ML ML SQ SCH ×4 (07:30→20:50)
[2022-05-08] MEDS: METHYLPREDNISOLONE 40 MG INJ IV SCH ×2 (09:00→20:50)
[2022-05-08] MEDS: CEFTRIAXONE 1,000 MG in NA CHLORIDE 0.9% 50 ML IVPB SCH (09:00)
[2022-05-08] MEDS: FAMOTIDINE 20 MG/2 ML VIAL IV SCH ×2 (09:00→20:50)
[2022-05-08] MEDS ORDERED: NA CHLORIDE 0.9% 50 ML ONE (11:05)
[2022-05-08] MEDS ORDERED: CEFTRIAXONE 1000 MG/VIAL ONE (11:05)
[2022-05-08] MEDS ORDERED: METHYLPREDNISOLONE 40 MG INJ ONE (11:05)
[2022-05-08] MEDS ORDERED: FAMOTIDINE 20 MG/2 ML VIAL IV ONE (11:05)
[2022-05-08] MEDS ORDERED: D5.45NS W/KCL 20MEQ 0 ML IV ONE (11:06)
[2022-05-08] MEDS ORDERED: D5 0.45 NS 1,000 ML IV ONE (11:20)
--- NOTE | 2022-05-08 13:51 | CON ---
Date of Consultation: 05/08/2022 Reason For Consultation: Elevated BUN and creatinine, acute kidney injury, rhabdomyolysis. History Of Present Illness: This is a pleasant 87-year-old gentleman with significant past medical history of diabetes complicated with neuropathy, no retinopathy, hypertension, hyperlipidemia, the patient was found fell by his relative, brought to the hospital, found to have elevation in BUN and creatinine, and found to have COVID, found to have also rhabdo. For that reason, we have been consulted. The patient has poor intake, nausea without any vomiting. Denied taking any nonsteroidal. Past Medical History: Includes; 1. Diabetes. 2. Hyperlipidemia. 3. Hypertension. Family History: Positive for hypertension. Social History: Denied smoking, denied drinking, denied drugs abuse. Review of Systems: Head and Neck: No red eye. No ear pain. GI: Has nausea. No vomiting. : No polyuria. No dysuria. No hematuria. Library Technical Assistant: Not applicable. Respiratory: No shortness of breath. Cardiovascular: No chest pain. Endocrine: No polydipsia. Skin: No rash. Neuro: Has fall. Musculoskeletal: Generalized body ache. Allergies: NO KNOWN DRUG ALLERGIES. Physical Examination: Vital Signs: Blood pressure 122/60, pulse of 88. Chest: Clear to auscultation. Heart: S1, S2. Regular. Abdomen: Soft, nontender. Extremity: No edema. Neuro: Moving 4 extremities. No focality. Laboratory Data: WBC 5.5, H and H 12.9/38.7. Sodium 141, potassium 3.8, bicarb 23, BUN 53, creatinine 1.6, GFR 40, lactic acid 2.9, calcium 9.1. CK 11,318. TSH 2.4. Urinalysis; specific gravity 1.030, RBC of 10, negative WBC, +1 protein. Current Medications: The patient on include; 1. Ceftriaxone. 2. Heparin. 3. Pepcid. 4. Solu-Medrol. 5. D5 half at 125. Assessment And Plan: 1. Acute kidney injury secondary to prerenal/rhabdomyolysis. The patient is status post fluid resuscitation. We will continue current IV fluid. I am going to go ahead and send for renal ultrasound, protein and creatinine to evaluate the chronicity of the disease and we will send for PTH. 2. Hypertension. We will avoid any VLAD inhibitor or ARB for the time being. Currently blood pressure controlled. We will follow up. 3. Rhabdomyolysis. TSH within normal limit. Mostly secondary to fall. We will continue hydration given the acute kidney injury. We will continue aggressive hydration. We will avoid any hypercalcemia, avoid statin. CK currently down to 11,000. We will follow up. 4. Hypernatremia, depletional. We will continue current hydration. We will follow up. 5. Diabetes as by primary. 6. COVID pneumonia. We will continue current antibiotic dose appropriate. We will follow up with primary. Time spent examining the patient [id number], reviewing the data, placing order, discussing with by bedside, discussing with staff member including charge nurse and nursing and hospitalist 65 minutes. DUSTIN Voice ID: [id number] Report ID: [id number] MTDFlor
--- NOTE | 2022-05-08 18:27 | P.PN ---
Subjective Date of Service: 05/08/22 Chief Complaint: Fall, AMS Patient is more alert and oriented today. He has no complaint and want to eat. No recorded fever. He is tolerating room air. Physical Examination - Vital Signs Blood Pressure: 130/56 Pulse: 59 Respirations: 17 Pulse Ox (%): 96 - Physical Exam General: Alert, In no apparent distress HEENT: PERRLA, Mucous membr. moist/pink, EOMI Neck: JVD not distended Respiratory: Clear to auscultation bilaterally, Normal air movement Cardiovascular: No edema, Regular rate/rhythm, Normal S1 S2 Gastrointestinal: Normal bowel sounds, Soft and benign, Non-distended, No tenderness Musculoskeletal: No swelling Integumentary: No rashes Neurological: Other (No focal motor deficit.) - Studies Microbiology Data (last 24 hrs): 05/07/22 17:29 Blood - Blood Anaerobic Blood Culture - Final Assessment And Plan - Current Problems (Diagnosis) (1) Rhabdomyolysis Current Visit: Yes Status: Acute (2) Pneumonia due to COVID-19 virus Current Visit: Yes Status: Acute (3) Acute renal failure Current Visit: Yes Status: Acute (4) Diabetes mellitus type 2 in nonobese Current Visit: Yes Status: Acute (5) Metabolic encephalopathy Current Visit: Yes Status: Acute (6) Elevated troponin Current Visit: Yes Status: Acute - Plan CK level is trending down. Mental status improved. Continue IV hydration with D5 half-normal saline. Patient started on full liquid diet Continue to monitor CK level Serum creatinine improved. Continue to monitor renal function Imaging indicated bilateral infiltrates. Repeat chest x-ray shows better aeration. No definite pneumonia. Ferritin level is normal, CRP is elevated. Blood cultures: No growth to date. We will continue IV steroid and IV antibiotics for now Monitor CRP levels Insulin sliding scale for glucose management. Resume home oral medications. Troponin mildly elevated but trended flat. Troponin elevation likely secondary to rhabdomyolysis. PT consult.
[2022-05-09] MEDS: HEPARIN 5000 UNIT/ML 1 ML VIAL SQ SCH ×3 (01:00→16:27)
[2022-05-09 03:40] LABS: Absolute Lymphocytes (CBC) 0.7 K/uL (0.7-4.9); Hematocrit 40.8 % (39.6-49.0); Lymphocytes % 8.6 % (15.3-44.8); MCV 90.7 fL (80-100); MPV 10.1 fL (7.6-11.3)
[2022-05-09 04:09] LABS: C-Reactive Protein 17.5 mg/L (<3.00); Potassium 3.9 mmol/L (3.5-5.1)
[2022-05-09] MEDS: D5 0.45 NS 1,000 ML IV SCH (05:03)
[2022-05-09] MEDS ORDERED: POTASSIUM CL SA 10 MEQ TAB PO ONE (06:00)
[2022-05-09] MEDS: INSULIN -REGULAR HUMAN 50 UNIT/0.5 ML ML SQ SCH ×4 (07:30→20:41)
[2022-05-09] MEDS: FAMOTIDINE 20 MG/2 ML VIAL IV SCH ×2 (09:29→20:41)
[2022-05-09] MEDS: CEFTRIAXONE 1,000 MG in NA CHLORIDE 0.9% 50 ML IVPB SCH (09:29)
[2022-05-09] MEDS: METHYLPREDNISOLONE 40 MG INJ IV SCH (09:29)
[2022-05-09] MEDS: NA CHLORIDE 0.9% 1,000 ML IV SCH (11:34)
--- NOTE | 2022-05-09 15:54 | PN ---
Date of Progress Note: 05/09/2022 Subjective: The patient was admitted with altered mental status, fall, found to have severe rhabdomyolysis and acute kidney injury. For that reason, we have been consulted. Over the night, the patient was started on aggressive hydration. Kidney function started to being normalized. The patient today more awake. Physical Examination: Vital Signs: Blood pressure 123/56, pulse of 51, afebrile. The patient had good urine output of 1225. Chest: Clear to auscultation. Heart: S1, S2. Regular. Abdomen: Soft, nontender. Extremities: No edema. Neurologic: Alert. No focality. Laboratory Data: WBC 7.6, H and H 13.5/40.8. Sodium 136, potassium 3.9, bicarb 21, BUN 32, creatinine 1, GFR of 67, calcium 8.2. CK 3063, trending down. TSH 2.4. Urinalysis negative for infection, +1 protein. Current Medications: The patient on include; 1. Ceftriaxone. 2. Pepcid. 3. Insulin. 4. IV fluid D5 half at 125. Assessment And Plan: 1. Acute kidney injury secondary to rhabdomyolysis, recovered, resolved. 2. Hypernatremia, secondary to depletional, poor intake, recovered. 3. Rhabdomyolysis secondary to fall. Kidney function normalized and currently the patient is nonoliguric. I am going to go ahead and change IV fluid to normal saline at 50 per hour and we will follow up. 4. Hypokalemia. We will supplement. 5. Hypertension, controlled, optimal. We will keep holding blood pressure medications for the time being. 6. COVID pneumonia as by primary. Time spent examining the patient [id number], reviewing the data, placing order, discussing with by bedside, discussing with staff member including charge nurse and nursing and hospitalist 45 minutes. DUSTIN Voice ID: [id number] Report ID: [id number] TONIA
--- NOTE | 2022-05-09 16:54 | P.PN ---
Subjective Date of Service: 05/09/22 Chief Complaint: Fall, AMS Patient is doing much better today. He is tolerating diet No recorded fever. He is tolerating room air. Physical Examination - Vital Signs Temperature: 97.1 F Blood Pressure: 129/57 Pulse: 51 Respirations: 16 Pulse Ox (%): 93 - Physical Exam General: Alert, In no apparent distress, Oriented x3 HEENT: Mucous membr. moist/pink Neck: JVD not distended Respiratory: Clear to auscultation bilaterally, Normal air movement Cardiovascular: No edema, Regular rate/rhythm, Normal S1 S2 Gastrointestinal: Normal bowel sounds, Soft and benign, Non-distended Musculoskeletal: No swelling Integumentary: No rashes Neurological: Normal strength at 5/5 x4 extr - Studies Microbiology Data (last 24 hrs): 05/07/22 17:29 Blood - Blood Anaerobic Blood Culture - Final Assessment And Plan - Current Problems (Diagnosis) (1) Rhabdomyolysis Current Visit: Yes Status: Acute (2) Pneumonia due to COVID-19 virus Current Visit: Yes Status: Acute (3) Acute renal failure Current Visit: Yes Status: Acute (4) Diabetes mellitus type 2 in nonobese Current Visit: Yes Status: Acute (5) Metabolic encephalopathy Current Visit: Yes Status: Acute (6) Elevated troponin Current Visit: Yes Status: Acute - Plan CK level continues to trend down AMS resolved patient is currently at baseline Continue IV hydration with D5 half-normal saline. Advance diet as tolerated Continue to monitor CK level Acute renal failure resolved. Imaging indicated bilateral infiltrates. Repeat chest x-ray shows better aeration. No definite pneumonia. Ferritin level is normal, CRP trended down. Blood cultures: No growth to date. Oral prednisone. Insulin sliding scale for glucose management. Continue home oral medications. Troponin mildly elevated but trended flat. Troponin elevation likely secondary to rhabdomyolysis. PT.
[2022-05-09] MEDS: GLUCERNA SHAKE 237 ML CAN PO SCH (20:38)
[2022-05-09] MEDS: ATORVASTATIN 40 MG TAB PO SCH (20:39)
[2022-05-09] MEDS: predniSONE 10 MG TAB PO SCH (20:39)
[2022-05-10] MEDS: HEPARIN 5000 UNIT/ML 1 ML VIAL SQ SCH ×3 (00:44→16:03)
[2022-05-10 04:17] LABS: Potassium 3.9 mmol/L (3.5-5.1)
[2022-05-10] MEDS ORDERED: POTASSIUM CL SA 10 MEQ TAB PO ONE (06:00)
[2022-05-10] MEDS: INSULIN -REGULAR HUMAN 50 UNIT/0.5 ML ML SQ SCH ×4 (07:30→21:00)
[2022-05-10] MEDS: NA CHLORIDE 0.9% 1,000 ML IV SCH ×2 (08:00→12:07)
[2022-05-10] MEDS ORDERED: HOME MED 1 EA UNK (Cyanocobalamin (Vitamin B-12) [Vitamin B12] 2,500 MCG Tablet) PO SCH (09:00)
[2022-05-10] MEDS: CEFTRIAXONE 1,000 MG in NA CHLORIDE 0.9% 50 ML IVPB SCH (09:03)
[2022-05-10] MEDS: ASPIRIN 81 MG CHEWABLE TABLET PO SCH (09:04)
[2022-05-10] MEDS: predniSONE 10 MG TAB PO SCH ×2 (09:04→21:54)
[2022-05-10] MEDS: CYANOCOBALAMIN 1,000 MCG TAB PO SCH (09:04)
[2022-05-10] MEDS: FAMOTIDINE 20 MG/2 ML VIAL IV SCH ×2 (09:05→21:54)
[2022-05-10] MEDS: GLUCERNA SHAKE 237 ML CAN PO SCH ×2 (09:05→21:55)
--- NOTE | 2022-05-10 09:20 | P.PN ---
Subjective Date of Service: 05/10/22 Chief Complaint: Fall, AMS Subjective: No new changes Physical Examination - Vital Signs Temperature: 97.0 F Blood Pressure: 148/65 Pulse: 53 Respirations: 21 Pulse Ox (%): 95 - Physical Exam General: Other (appears as his stated age) HEENT: Atraumatic, Normocephalic Neck: Supple Respiratory: Other (symmetric chest expansion) Cardiovascular: No rubs, No murmurs Gastrointestinal: Soft and benign, No rebound Musculoskeletal: No clubbing Integumentary: No warmth Neurological: Normal tone Urinary: Other (no bladder distention) External genitalia: Deferred Rectal: Deferred Assessment And Plan - Plan 1. Acute kidney injury secondary to rhabdomyolysis. Resolved. [place] po fluid intake. Monitor renal panel. 2. Hypernatremia. Resolved. Encourage po fluid intake. 3. Rhabdomyolysis secondary to mechanical fall. On NS gtt. Encourage po fluid intake. 4. Hypokalemia. Resolved. Monitor/replete K prn. 5. Hypertension. Bp controlled, monitor. 6. COVID pneumonia. Mngt per primary team.
--- NOTE | 2022-05-10 16:27 | P.PN ---
Subjective Date of Service: 05/10/22 Chief Complaint: Fall, AMS Patient has no new complaint He is tolerating diet No recorded fever. He was noted to be wobbly during PT yesterday. Physical Examination - Vital Signs Temperature: 96.9 F Blood Pressure: 125/60 Pulse: 65 Respirations: 20 Pulse Ox (%): 92 - Physical Exam General: Alert, In no apparent distress, Oriented x3 HEENT: Mucous membr. moist/pink Neck: JVD not distended Respiratory: Clear to auscultation bilaterally, Normal air movement Cardiovascular: No edema, Regular rate/rhythm, Normal S1 S2 Gastrointestinal: Normal bowel sounds, Soft and benign, Non-distended, No tenderness Musculoskeletal: No swelling Integumentary: No rashes Neurological: Normal strength at 5/5 x4 extr Assessment And Plan - Current Problems (Diagnosis) (1) Rhabdomyolysis Current Visit: Yes Status: Acute (2) Pneumonia due to COVID-19 virus Current Visit: Yes Status: Acute (3) Acute renal failure Current Visit: Yes Status: Acute (4) Diabetes mellitus type 2 in nonobese Current Visit: Yes Status: Acute (5) Metabolic encephalopathy Current Visit: Yes Status: Acute (6) Elevated troponin Current Visit: Yes Status: Acute - Plan CK level continues to trend down AMS resolved and patient is currently at baseline Continue IV hydration.. Diet as tolerated Continue to monitor CK level Acute renal failure resolved. Imaging indicated bilateral infiltrates. Repeat chest x-ray shows better aeration. No definite pneumonia. Ferritin level is normal, CRP trended down. Blood cultures: No growth to date. Oral prednisone. Insulin sliding scale for glucose management. Continue home oral medications. Troponin mildly elevated but trended flat. Troponin elevation likely secondary to rhabdomyolysis. PT. Anticipating skilled rehab placement.
[2022-05-10] MEDS: ATORVASTATIN 40 MG TAB PO SCH (21:54)
[2022-05-11] MEDS: HEPARIN 5000 UNIT/ML 1 ML VIAL SQ SCH ×3 (00:48→16:42)
[2022-05-11] MEDS: NA CHLORIDE 0.9% 1,000 ML IV SCH ×2 (04:00→05:22)
[2022-05-11 04:11] LABS: Potassium 3.8 mmol/L (3.5-5.1)
[2022-05-11] MEDS ORDERED: POTASSIUM CL SA 10 MEQ TAB PO ONE (06:00)
[2022-05-11] MEDS: INSULIN -REGULAR HUMAN 50 UNIT/0.5 ML ML SQ SCH ×4 (07:30→20:58)
[2022-05-11] MEDS: GLUCERNA SHAKE 237 ML CAN PO SCH ×2 (09:00→21:02)
[2022-05-11] MEDS: ASPIRIN 81 MG CHEWABLE TABLET PO SCH (09:36)
[2022-05-11] MEDS: predniSONE 10 MG TAB PO SCH ×2 (09:37→21:01)
[2022-05-11] MEDS: CEFTRIAXONE 1,000 MG in NA CHLORIDE 0.9% 50 ML IVPB SCH (09:38)
[2022-05-11] MEDS: CYANOCOBALAMIN 1,000 MCG TAB PO SCH (09:40)
[2022-05-11] MEDS: FAMOTIDINE 20 MG TAB PO SCH ×2 (09:41→21:00)
--- NOTE | 2022-05-11 14:33 | P.DS ---
Admission Date: 05/07/22 Discharge Date: 05/11/22 Disposition: DC HOME/HOME HEALTH CARE Discharge Condition: FAIR Reason for Admission: Fall, AMS - Problems (1) Rhabdomyolysis Current Visit: Yes Status: Acute (2) Pneumonia due to COVID-19 virus Current Visit: Yes Status: Acute (3) Acute renal failure Current Visit: Yes Status: Acute (4) Diabetes mellitus type 2 in nonobese Current Visit: Yes Status: Acute (5) Metabolic encephalopathy Current Visit: Yes Status: Acute (6) Elevated troponin Current Visit: Yes Status: Acute Brief History of Present Illness: 79-year-old gentleman with a history of diabetes mellitus on metformin and hyperlipidemia was brought to the emergency department for evaluation for fall. Patient's son by his bedside gave the history. According to the son family tried reaching him by phone call for 3 days but no answer. Sons girlfriend later checked on him and found him on the floor, covered with urine, unresponsive. EMS was called and patient was brought to the emergency d epartment. Blood sugar when EMS found him was around 130. No witnessed seizures. According to family, patient at baseline interact and communicate appropriately. He lives alone. Family mentioned that they recently noted he has been having memory issues. Work-up in the emergency department demonstrated markedly elevated CK, acute renal failure indicating rhabdomyolysis. Chest x- ray and CT scan suggest possible bibasilar pneumonia. He has no leukocytosis, he is normotensive, no recorded fever and does not meet criteria for sepsis. COVID-19 screen came back positive. Patient is hospitalized for further management of rhabdomyolysis with LARRY and COVID-19 pneumonia. Hospital Course: Admitted to the medical floor and treated aggressively with IV fluids CK level monitored trended down and almost normalized. AMS resolved and patient is currently at baseline Patient tolerated diet Acute renal failure resolved. Nephrology assisted with management of LARRY. Imaging indicated bilateral infiltrates. Repeat chest x-ray shows better aeration. No definite pneumonia. Patient treated briefly with steroid due to COVID-19 infection. Ferritin level is normal, CRP trended down. Blood cultures: No growth to date. Insulin sliding scale used for glucose management. Troponin mildly elevated but trended flat. Troponin elevation likely secondary to rhabdomyolysis. He was able to ambulate with PT but his gait was wobbly. Family declined skilled rehab placement and preferred care at home. Son has made arrangement for patient to live with him. Patient deemed clinically stable for discharge. Vital Signs/Physical Exam: Temp Pulse Resp BP Pulse Ox 98.5 F 74 18 139/65 91 05/11/22 12:00 05/11/22 12:00 05/11/22 12:00 05/11/22 12:00 05/11/22 12:00 General: Alert, In no apparent distress, Oriented x3 HEENT: Mucous membr. moist/pink Neck: JVD not distended Respiratory: Clear to auscultation bilaterally, Normal air movement Cardiovascular: No edema, Regular rate/rhythm, Normal S1 S2 Gastrointestinal: Soft and benign, Non-distended Musculoskeletal: No swelling Neurological: Normal strength at 5/5 x4 extr Laboratory Data at Discharge: WBC 7.6 K/uL (4.3-10.9) D 05/09/22 02:58 Hgb 13.5 g/dL (13.6-17.9) L 05/09/22 02:58 Hct 40.8 % (39.6-49.0) 05/09/22 02:58 Plt Count 106 K/uL (152-406) L 05/09/22 02:58 Sodium 138 mmol/L (136-145) 05/11/22 03:07 Potassium 3.8 mmol/L (3.5-5.1) 05/11/22 03:07 BUN 17 mg/dL (7-18) 05/11/22 03:07 Creatinine 0.84 mg/dL (0.55-1.3) 05/11/22 03:07 Glucose 121 mg/dL (74-106) H 05/11/22 03:07 Phosphorus 2.2 mg/dL (2.5-4.9) L 05/08/22 02:05 Magnesium 2.1 mg/dL (1.8-2.4) D 05/08/22 02:05 Total Bilirubin 0.4 mg/dL (0.2-1.0) 05/08/22 02:05 AST 418 U/L (15-37) H* D 05/08/22 02:05 ALT 107 U/L (12-78) H 05/08/22 02:05 Alkaline Phosphatase 90 U/L (45-117) 05/08/22 02:05 Triglycerides 170 mg/dL (<150) H 05/08/22 02:05 Cholesterol 75 mg/dL (<200) 05/08/22 02:05 HDL Cholesterol 25 mg/dL (40-60) L 05/08/22 02:05 Cholesterol/HDL Ratio 3.00 05/08/22 02:05 Home Medications: Aspirin Chewable [Aspirin Chewable*] 324 tab PO DAILY 05/09/22 Atorvastatin Calcium [Lipitor] 40 mg PO BEDTIME 05/09/22 Cyanocobalamin (Vitamin B-12) [Vitamin B12] 1,000 mcg PO DAILY 05/09/22 Metformin HCl [Glucophage*] 500 mg PO BIDWM 05/09/22 Prevagen 1 tab PO DAILY 05/09/22 Glucerna Shake [Glucerna*] 237 ml PO BID #20 can 05/11/22 New Medications: Glucerna Shake [Glucerna*] 237 ml PO BID #20 can Diet: ADA Activity: Fall precautions Followup: Ramo Andino MD [Primary Care Provider] - 1-2 Weeks Time spent managing pt's care (in minutes): 36
[2022-05-11] MEDS: D5NS KCL 20MEQ 20 MEQ/1,000 ML BAG IV SCH (16:42)
--- NOTE | 2022-05-11 17:15 | P.PN ---
Subjective Date of Service: 05/11/22 Chief Complaint: Fall, AMS Report patient has been reluctant to eat. Patient seems confused No recorded fever. Physical Examination - Vital Signs Temperature: 98.5 F Blood Pressure: 135/66 Pulse: 90 Respirations: 18 Pulse Ox (%): 92 - Physical Exam General: Confused Neck: JVD not distended Respiratory: Clear to auscultation bilaterally, Normal air movement Cardiovascular: No edema, Regular rate/rhythm, Normal S1 S2 Gastrointestinal: Soft and benign, Non-distended, No tenderness Neurological: Other (No focal motor deficit) Assessment And Plan - Current Problems (Diagnosis) (1) Rhabdomyolysis Current Visit: Yes Status: Acute (2) Pneumonia due to COVID-19 virus Current Visit: Yes Status: Acute (3) Acute renal failure Current Visit: Yes Status: Acute (4) Diabetes mellitus type 2 in nonobese Current Visit: Yes Status: Acute (5) Metabolic encephalopathy Current Visit: Yes Status: Acute (6) Elevated troponin Current Visit: Yes Status: Acute - Plan CK level continues to trend down. Patient seemed confused today. Reduced oral intake. Continue IV hydration. Diet as tolerated Acute renal failure resolved. Ferritin level is normal, CRP trended down. Blood cultures: No growth to date. Continue oral prednisone Insulin sliding scale for glucose management. Continue home oral medications. Troponin mildly elevated but trended flat. Troponin elevation likely secondary to rhabdomyolysis. Family prefers to take patient home but were concerned about his confusion and w eakness today and now realizes it may be more challenging to take care of him at home. We will continue to monitor his response to treatment over this weekend. Family may take him home if he gets better by Friday. Social service arranging for skilled rehab placement if he does not get better.
--- NOTE | 2022-05-11 18:21 | PN ---
Date of Progress Note: 05/11/2022 Subjective: The patient is doing well. The patient was admitted with dehydration, rhabdomyolysis with acute kidney injury and COVID pneumonia. The patient is started on hydration. Kidney function has been normalized. Rhabdo has been improved significantly. Physical Examination: Vital Signs: Blood pressure 139/65, pulse of 74, afebrile. Chest: Clear to auscultation. Heart: S1, S2. Regular. Abdomen: Soft, nontender. Extremities: No edema. Neurologic: Alert. No focality. Laboratory Data: WBC 7.6, H and H 13.5/40.8. Sodium 138, potassium 3.8, bicarb 21, BUN 17, creatinine 0.8, calcium 8. CK of 500. Current Medications: The patient is on; include: 1. Aspirin. 2. Ceftriaxone. 3. Atorvastatin. 4. Tylenol. 5. Pepcid. 6. Insulin. 7. IV fluid, normal saline at 50 per hour. Assessment And Plan: 1. Acute kidney injury secondary to rhabdomyolysis, recovered, resolved, looked to me normal volume. Discontinue IV fluid. 2. Rhabdomyolysis secondary possible to atypical COVID pneumonia. Recovered. CK down to 500. The patient's nonoliguric kidney function normalized. Discontinue IV fluid. We will monitor. 3. Hypernatremia, secondary to dehydration, depletional, resolved. Discontinue IV fluid. 4. Diabetes as by primary. 5. COVID pneumonia as by primary. 6. Hypokalemia. We will supplement. Time spent examining the patient [id number], reviewing the data, placing order, discussing with by bedside, discussing with staff member including charge nurse and nursing and hospitalist 45 minutes. DUSTIN Voice ID: [id number] Report ID: [id number] TONIA
[2022-05-11] MEDS: ATORVASTATIN 40 MG TAB PO SCH (21:01)
[2022-05-11] MEDS: HALOPERIDOL LACT 5 MG/ML INJ IV PRN (21:27)
[2022-05-12] MEDS: HEPARIN 5000 UNIT/ML 1 ML VIAL SQ SCH ×3 (00:58→16:05)
[2022-05-12 03:50] LABS: Potassium 3.9 mmol/L (3.5-5.1)
[2022-05-12] MEDS ORDERED: POTASSIUM CL SA 10 MEQ TAB PO ONE (06:00)
[2022-05-12] MEDS: INSULIN -REGULAR HUMAN 50 UNIT/0.5 ML ML SQ SCH ×4 (07:30→21:00)
[2022-05-12] MEDS: ASPIRIN 81 MG CHEWABLE TABLET PO SCH (08:01)
[2022-05-12] MEDS: CYANOCOBALAMIN 1,000 MCG TAB PO SCH (08:01)
[2022-05-12] MEDS: CEFTRIAXONE 1,000 MG in NA CHLORIDE 0.9% 50 ML IVPB SCH (08:01)
[2022-05-12] MEDS: FAMOTIDINE 20 MG TAB PO SCH ×2 (08:01→19:33)
[2022-05-12] MEDS: predniSONE 10 MG TAB PO SCH ×2 (08:01→19:33)
[2022-05-12] MEDS: GLUCERNA SHAKE 237 ML CAN PO SCH ×2 (10:26→19:33)
[2022-05-12] MEDS: HALOPERIDOL LACT 5 MG/ML INJ IV PRN ×2 (11:11→17:48)
[2022-05-12] MEDS: D5NS KCL 20MEQ 20 MEQ/1,000 ML BAG IV SCH (11:15)
--- NOTE | 2022-05-12 13:50 | P.PN ---
Subjective Date of Service: 05/12/22 Chief Complaint: Fall, AMS Patient is more interactive and oriented today. He has been finishing his meals. He has no complaint. Physical Examination - Vital Signs Temperature: 97.6 F Blood Pressure: 110/61 Pulse: 78 Respirations: 20 Pulse Ox (%): 93 - Physical Exam General: Oriented x2 HEENT: Mucous membr. moist/pink Neck: JVD not distended Respiratory: Clear to auscultation bilaterally, Normal air movement Cardiovascular: No edema, Regular rate/rhythm, Normal S1 S2 Gastrointestinal: Soft and benign, Non-distended, No tenderness Musculoskeletal: No swelling Neurological: Normal strength at 5/5 x4 extr Assessment And Plan - Current Problems (Diagnosis) (1) Rhabdomyolysis Current Visit: Yes Status: Acute (2) Pneumonia due to COVID-19 virus Current Visit: Yes Status: Acute (3) Acute renal failure Current Visit: Yes Status: Acute (4) Diabetes mellitus type 2 in nonobese Current Visit: Yes Status: Acute (5) Metabolic encephalopathy Current Visit: Yes Status: Acute (6) Elevated troponin Current Visit: Yes Status: Acute - Plan Rhabdomyolysis resolved. Patient mental status is better today. He is eating well. Discontinue IV fluid Diet as tolerated Acute renal failure resolved. Ferritin level is normal, CRP trended down. Blood cultures: No growth to date. Continue oral prednisone Insulin sliding scale for glucose management. Continue home oral medications. Troponin mildly elevated but trended flat. Troponin elevation likely secondary to rhabdomyolysis. Family prefers to take patient home but were concerned about his confusion and weakness yesterday and stated it may be more challenging to take care of him at home. He is doing better today. Family may take him home if he continues to get better. Social service arranging for skilled rehab placement if he does not get better.
--- NOTE | 2022-05-12 14:36 | PN ---
Date of Progress Note: 05/12/2022 Subjective: The patient was admitted with COVID pneumonia, rhabdo, acute kidney injury, dehydration. The patient was treated, recovered. Physical Examination: Vital Signs: Blood pressure 110/61, pulse of 78, afebrile. Chest: Clear to auscultation. Heart: S1, S2. Regular. Abdomen: Soft, nontender. Extremities: No edema. Neurological: Alert. No focality. Laboratory Data: WBC 7.6, H and H 13.5/40.8. Sodium 136, potassium 3.9, bicarb 22, BUN 15, creatinine 0.9, calcium of 9. CK down to 476. Current Medications: The patient on include; 1. Ceftriaxone. 2. Aspirin. 3. Atorvastatin. 4. Haloperidol. 5. Pepcid. 6. Prednisone. Assessment And Plan: 1. Acute kidney injury secondary to prerenal, recovered, resolved. 2. Rhabdomyolysis secondary possible to dehydration/statin. We will hold statin. The patient recovered completely. Keep holding IV fluid. 3. Hypokalemia, resolved. 4. COVID pneumonia. Continue supportive care. 5. Hypernatremia secondary to depletional, heat exertion, recovered. 6. Heat exertion, resolved. Time spent examining the patient [id number], reviewing the data, placing order, discussing with by bedside, discussing with staff member including charge nurse and nursing and hospitalist 35 minutes. DUSTIN Voice ID: [id number] Report ID: [id number] TONIA
[2022-05-12] MEDS ORDERED: WATER FOR INJ,STERILE 10 ML IM PRN (19:15)
[2022-05-12] MEDS: ZIPRASIDONE MESYLA 20 MG/VIAL IM PRN (19:33)
[2022-05-13] MEDS: HEPARIN 5000 UNIT/ML 1 ML VIAL SQ SCH ×3 (00:13→15:57)
[2022-05-13] MEDS: INSULIN -REGULAR HUMAN 50 UNIT/0.5 ML ML SQ SCH ×4 (07:30→20:05)
[2022-05-13] MEDS: predniSONE 10 MG TAB PO SCH (08:23)
[2022-05-13] MEDS: ASPIRIN 81 MG CHEWABLE TABLET PO SCH (08:23)
[2022-05-13] MEDS: CEFTRIAXONE 1,000 MG in NA CHLORIDE 0.9% 50 ML IVPB SCH (08:23)
[2022-05-13] MEDS: CYANOCOBALAMIN 1,000 MCG TAB PO SCH (08:23)
[2022-05-13] MEDS: FAMOTIDINE 20 MG TAB PO SCH ×2 (08:23→19:14)
[2022-05-13] MEDS: GLUCERNA SHAKE 237 ML CAN PO SCH ×2 (08:24→19:14)
[2022-05-13] MEDS ORDERED: CEFTRIAXONE 1000 MG/VIAL ONE (08:28)
[2022-05-13] MEDS ORDERED: NA CHLORIDE 0.9% 50 ML ONE (08:29)
[2022-05-13 11:30] LABS: Potassium 3.7 mmol/L (3.5-5.1)
[2022-05-13] MEDS: QUETIAPINE 25 MG TAB PO SCH ×2 (12:56→19:14)
--- NOTE | 2022-05-13 14:21 | P.PN ---
Subjective Date of Service: 05/13/22 Chief Complaint: Fall, AMS Nursing staff report patient was very agitated last night. He was given Geodon and needed a sitter. Noted to be confused this morning. Physical Examination - Vital Signs Temperature: 97.3 F Blood Pressure: 109/58 Pulse: 80 Respirations: 18 Pulse Ox (%): 88 - Physical Exam General: Confused Neck: JVD not distended Respiratory: Clear to auscultation bilaterally, Normal air movement Cardiovascular: No edema, Regular rate/rhythm, Normal S1 S2 Gastrointestinal: Soft and benign, Non-distended Musculoskeletal: No swelling Integumentary: No cyanosis Neurological: Normal strength at 5/5 x4 extr, Other (Confused), Dementia - Studies Microbiology Data (last 24 hrs): 05/07/22 17:29 Blood - Blood Aerobic Blood Culture - Final No growth in 5 days. 05/07/22 17:29 Blood - Blood Anaerobic Blood Culture - Final 05/07/22 15:37 Blood - Blood Aerobic Blood Culture - Final No growth in 5 days. 05/07/22 15:37 Blood - Blood Anaerobic Blood Culture - Final No growth in 5 days. Assessment And Plan - Current Problems (Diagnosis) (1) Rhabdomyolysis Current Visit: Yes Status: Acute (2) Pneumonia due to COVID-19 virus Current Visit: Yes Status: Acute (3) Acute renal failure Current Visit: Yes Status: Acute (4) Diabetes mellitus type 2 in nonobese Current Visit: Yes Status: Acute (5) Metabolic encephalopathy Current Visit: Yes Status: Acute (6) Elevated troponin Current Visit: Yes Status: Acute (7) Dementia with behavioral disturbance Current Visit: Yes Status: Acute - Plan Rhabdomyolysis resolved. Patient mental status waxes and wanes Diet as tolerated Acute renal failure resolved. Ferritin level is normal, CRP trended down. Blood cultures: No growth to date. Patient is currently requiring oxygen. Repeat chest x-ray. Continue oral prednisone. Insulin sliding scale for glucose management. Continue home oral medications. Troponin mildly elevated but trended flat. Troponin elevation likely secondary to rhabdomyolysis. Family prefers to take patient home but were concerned about his confusion and weakness yesterday and stated it may be more challenging to take care of him at home. Social service arranging for skilled rehab placement.
[2022-05-13] MEDS: ZIPRASIDONE MESYLA 20 MG/VIAL IM PRN ×2 (14:58→19:14)
[2022-05-13] MEDS ORDERED: WATER FOR INJ,STERILE 10 ML IM PRN (17:03)
[2022-05-13] MEDS: predniSONE 20 MG TAB PO SCH (19:13)
--- NOTE | 2022-05-13 20:40 | RAD REPORT ---
EXAM DESCRIPTION: RAD - Chest Single View - 05/13/2022 8:09 pm CLINICAL HISTORY: Pneumonia Chest pain. COMPARISON: Chest Pa And Lat (2 Views) dated 05/08/2022; Chest Single View dated 05/07/2022 FINDINGS: Portable technique limits examination quality. Moderately severe bilateral pulmonary opacities are present most compatible with pneumonia. The findi ngs are notably progressive since the prior chest radiograph. The heart is upper limit of normal in s ize.
--- NOTE | 2022-05-13 21:21 | P.PN ---
Date of Service: 05/14/22 Subjective: agitated overnight, s/p multiple geodon, haldol pulling oxygen off,, desaturates CXR with b/l opacities patient did ok in morning, worse this afternoon with pulling oxygen off and desaturating ROS: unable to fully obtain Physical Exam: Gen: agitated, not following commands HEENT: normal conjunctiva, sclera anicteric CV: regular rate/rhythm with occasional sinus tachycardia Pulm: b/l crackles, labored respirations Abd: soft, nontender, nondistended Skin: no rashes/lesions Neuro: agitated, oriented to self only, moves extremities Problem List acute Rhabdomyolysis s/p fall acute hypoxemic respiratory failure secondary to pneumonia due to COVID-19 virus Acute renal failure, prerenal DM2, non-insulin dependent acute Metabolic encephalopathy Elevated troponin; demand ischemia Dementia with behavioral disturbance acute rhabdo resolved renal function improved. nephrology following Patient mental status waxes and wanes Diet as tolerated repeat ferritin/CRP; procal Blood cultures: No growth to date. Patient is currently requiring oxygen. and constantly taking it off, leading to desaturations Repeat chest x-ray 05/13 with worsening b/l pulm opacities. pulmonology consulted patient transferred to ICU for behavioral disturbance, needs more closer monitoring / sedation, may need intubation if no improvement son at bedside and updated Insulin sliding scale for glucose management. Troponin mildly elevated but trended flat. Troponin elevation likely secondary to rhabdomyolysis / demand ischemia Family prefers to take patient home but were concerned about his confusion and weakness. Stated it may be more challenging to take care of him at home. Social service arranging for skilled rehab placement. VTE: heparin subq Code: full Dispo: SNF Time Spent Managing Pts Care (In Minutes): 35
--- NOTE | 2022-05-13 23:08 | PN ---
Date of Progress Note: 05/13/2022 Chief Complaint: COVID pneumonia, rhabdomyolysis, acute kidney injury, dehydration. Subjective: The patient was treated for rhabdomyolysis. He responded to IV fluids. Currently, he i s off IV fluids. Renal function has stabilized at baseline and CK level has improved gradually. IV fluids on hold. The patient was taken off statin medication due to this time he developed rhabdomyol ysis. Review of Systems: Denies fever or chills. Physical Examination: Lungs: Diminished breath sounds. Heart: S1, S2. Abdomen: Soft, benign. Extremities: Slight edema. Impression And Plan: 1.Acute kidney injury secondary to prerenal azotemia complicated by rhabdomyolysis. The patient was taken off statin due to the fact that he had rhabdomyolysis related to statin medication effect and volume depletion. IV fluids were started and the patient is currently euvolemic. Continue to hold I V fluids. Continue p.o. hydration. 2.Hypokalemia, resolved. Monitor magnesium, potassium, and phosphorus. 3.COVID pneumonia, per primary team. EB/MODL Voice ID: [id number] Report ID: [id number]
[2022-05-14] MEDS: HEPARIN 5000 UNIT/ML 1 ML VIAL SQ SCH ×2 (01:30→09:47)
[2022-05-14] MEDS: ZIPRASIDONE MESYLA 20 MG/VIAL IM PRN ×3 (02:15→21:54)
[2022-05-14 03:48] LABS: Absolute Lymphocytes (CBC) 0.2 K/uL (0.7-4.9); Hematocrit 35.1 % (39.6-49.0); MCV 88.7 fL (80-100); MPV 10.1 fL (7.6-11.3); RBC Red Blood Cell Count 3.95 M/uL (4.33-5.43)
[2022-05-14 04:04] LABS: Potassium 3.9 mmol/L (3.5-5.1)
[2022-05-14] MEDS: INSULIN -REGULAR HUMAN 50 UNIT/0.5 ML ML SQ SCH ×4 (07:30→21:00)
--- NOTE | 2022-05-14 08:58 | RAD REPORT ---
EXAM DESCRIPTION: RAD - Chest Single View - 05/14/2022 8:22 am CLINICAL HISTORY: f/u opacities, covid COMPARISON: Portable 05/13/2022 TECHNIQUE: AP portable chest image was obtained 05/14/2022 8:22 am . FINDINGS: The extensive interstitial and alveolar opacities are present in both lung mcclain. Pattern is not substantially different from prior imaging. No convincing evidence for further progression. T he lung volumes are reduced slightly from the 05/13 study. Heart and vasculature are normal. No measurable pleural effusion and no pneumothorax. No acute bony abnormality seen. No acute aortic findings suspected. IMPRESSION: Extensive bilateral pneumonia pattern stable from prior day imaging.
[2022-05-14] MEDS: GLUCERNA SHAKE 237 ML CAN PO SCH ×2 (09:00→21:00)
[2022-05-14] MEDS ORDERED: POTASSIUM CL SA 10 MEQ TAB PO ONE (09:00)
[2022-05-14] MEDS: FAMOTIDINE 20 MG TAB PO SCH ×2 (09:46→21:00)
[2022-05-14] MEDS: predniSONE 20 MG TAB PO SCH (09:46)
[2022-05-14] MEDS: CYANOCOBALAMIN 1,000 MCG TAB PO SCH (09:46)
[2022-05-14] MEDS: ASPIRIN 81 MG CHEWABLE TABLET PO SCH (09:46)
[2022-05-14] MEDS: QUETIAPINE 25 MG TAB PO SCH ×2 (09:46→21:00)
[2022-05-14] MEDS: CEFTRIAXONE 1,000 MG in NA CHLORIDE 0.9% 50 ML IVPB SCH (10:21)
--- NOTE | 2022-05-14 11:59 | P.CNS ---
Date of Consult: 05/14/22 Reason for Consult: Coronavirus pneumonia Chief Complaint: Coronavirus pneumonia History of Present Illness: Patient is 87 years of age admitted with coronavirus pneumonia still short of breath hypoxic x-ray shows significant interstitial lung disease on 4 L satting around 90% also had rhabdomyolysis which is improving Allergies No Known Allergies Allergy (Unverified 05/07/22 22:39) Home Medications: Aspirin Chewable [Aspirin Chewable*] 324 tab PO DAILY 05/09/22 Atorvastatin Calcium [Lipitor] 40 mg PO BEDTIME 05/09/22 Cyanocobalamin (Vitamin B-12) [Vitamin B12] 1,000 mcg PO DAILY 05/09/22 Metformin HCl [Glucophage*] 500 mg PO BIDWM 05/09/22 Prevagen 1 tab PO DAILY 05/09/22 Glucerna Shake [Glucerna*] 237 ml PO BID #20 can 05/11/22 - Past Medical/Surgical History -: Ood-[id number] diabetes -: Hyperlipidemia - Social History Smoking Status: Unknown if ever smoked Alcohol use: No CD- Drugs: No Place of Residence: Home Review of Systems General: Weakness Respiratory: Shortness of Breath Physical Examination Temp Pulse Resp BP Pulse Ox 96.9 F 89 22 H 129/65 90 L 05/14/22 08:00 05/14/22 08:00 05/14/22 08:00 05/14/22 08:00 05/14/22 08:00 General: Alert, In no apparent distress, Oriented x3 HEENT: Atraumatic Neck: Supple - Problems (1) Pneumonia due to COVID-19 virus Current Visit: Yes Status: Acute Plan: Patient is [age] years of age admitted with pneumonia due to coronavirus is got diffuse interstitial lung disease vital signs stable 4 L 90% noncompliant with oxygen labs reviewed trial of Lasix DC Rocephin changed to Decadron blood cultures negative change to p.o. Xarelto
--- NOTE | 2022-05-14 16:06 | PN ---
Date of Progress Note: 05/14/2022 Subjective: The patient was admitted with acute kidney injury secondary to rhabdo. The patient had COVID. The patient was started on aggressive hydration. Kidney function has been improved significantly. Rhabdo has been improved. Physical Examination: Vital Signs: When I saw the patient; blood pressure 129/65, pulse of 89, afebrile. Chest: Clear to auscultation. Heart: S1, S2. Regular. Abdomen: Soft, nontender. Extremities: No edema. Neuro: Alert. No focality. Laboratory Data: WBC 6.4, H and H 11.9/35.1. Sodium 140, potassium 3.9, bicarb 24, BUN 25, creatinine 1.1, GFR of 61, calcium 8.5, magnesium of 2. Current Medications: The patient on include; 1. Aspirin. 2. Xarelto. 3. Geodon. 4. The patient was started on Lasix today. 5. Pepcid. 6. KCl. Assessment And Plan: 1. Acute kidney injury secondary to prerenal, poor perfusion, ATN, recovered, resolved. 2. Hypernatremia secondary to dehydration, resolved. 3. Rhabdomyolysis, status post hydration, recovered, resolved. 4. Hypokalemia. We will continue supplement. 5. Altered mental status as by primary. Time spent examining the patient [id number], reviewing the data, placing order, discussing with by bedside, discussing with staff member including charge nurse and nursing and hospitalist 35 minutes. DUSTIN Voice ID: [id number] Report ID: [id number] TONIA
[2022-05-14] MEDS: FUROSEMIDE 20 MG/ 2ML VIAL IV SCH (16:19)
[2022-05-14] MEDS: RIVAROXABAN 10 MG TABLET PO SCH ×2 (16:19→16:31)
[2022-05-14] MEDS ORDERED: LORazepam 2 MG/ML VIAL IV ONE (16:45)
[2022-05-14] MEDS: DEXMEDETOMIDINE HCL 200 MCG in NA CHLORIDE 0.9% 98 ML IV SCH ×2 (19:30→21:52)
[2022-05-14] MEDS: dexAMETHasone 4 MG TAB PO SCH (21:00)
[2022-05-15 05:50] LABS: Magnesium 2.4 mg/dL (1.8-2.4); Phosphorus 3.5 mg/dL (2.5-4.9); Potassium 4.5 mmol/L (3.5-5.1)
[2022-05-15 06:08] LABS: Absolute Lymphocytes (CBC) 0.6 K/uL (0.7-4.9); Hematocrit 40.9 % (39.6-49.0); Lymphocytes % 7.2 % (15.3-44.8); MCV 90.7 fL (80-100); MPV 10.5 fL (7.6-11.3)
[2022-05-15 06:48] LABS: Arterial Blood Carboxyhemoglob 0.6 % (0-1.5); Blood Gas Oxyhemoglobin 80.9 % (94-97); Blood O2 Saturation 82.1 % (92-98.5)
[2022-05-15] MEDS: DEXMEDETOMIDINE HCL 200 MCG in NA CHLORIDE 0.9% 98 ML IV SCH (07:23)
[2022-05-15] MEDS: INSULIN -REGULAR HUMAN 50 UNIT/0.5 ML ML SQ SCH ×4 (07:30→23:10)
--- NOTE | 2022-05-15 07:40 | RAD REPORT ---
EXAM DESCRIPTION: Cody Single View05/15/2022 6:37 am CLINICAL HISTORY: Cough COMPARISON: May 14, 2022 FINDINGS: Minimal improvement in diffuse bilateral pulmonary opacities. Heart is normal size IMPRESSION: Minimal improvement in diffuse bilateral pulmonary opacities which may represent pneumo eugenia
[2022-05-15] MEDS: ASPIRIN 81 MG CHEWABLE TABLET PO SCH (07:50)
[2022-05-15] MEDS: GLUCERNA SHAKE 237 ML CAN PO SCH (07:50)
[2022-05-15] MEDS: dexAMETHasone 4 MG TAB PO SCH (07:50)
[2022-05-15] MEDS: CYANOCOBALAMIN 1,000 MCG TAB PO SCH (07:51)
[2022-05-15] MEDS: QUETIAPINE 25 MG TAB PO SCH (07:51)
[2022-05-15] MEDS: FAMOTIDINE 20 MG TAB PO SCH ×2 (07:51→20:20)
[2022-05-15] MEDS ORDERED: RSI MEDICATION KIT IV ONE (08:52)
[2022-05-15] MEDS ORDERED: propofoL 200 MG/20 ML VIAL IV ONE (08:54)
[2022-05-15] MEDS ORDERED: LIDOCAINE 2% MPF 5 ML VIAL IV ONE (09:42)
[2022-05-15] MEDS ORDERED: ROCURONIUM 50 MG/5 ML VIAL IV ONE (09:42)
[2022-05-15] MEDS ORDERED: ETOMIDATE 20 MG/10 ML VIAL IV ONE (09:42)
[2022-05-15] MEDS ORDERED: SUCCINYLCHOLINE 20 MG/ML (10 ML) IV ONE (09:42)
--- NOTE | 2022-05-15 10:25 | RAD REPORT ---
EXAM DESCRIPTION: [place] Single View05/15/2022 10:04 am CLINICAL HISTORY: Device placement endotracheal tube placement IMPRESSION: An endotracheal tube has been inserted with its tip at the level of the aortic arch
[2022-05-15] MEDS: FUROSEMIDE 20 MG/ 2ML VIAL IV SCH (10:36)
[2022-05-15] MEDS: ZIPRASIDONE MESYLA 20 MG/VIAL IM PRN (10:36)
--- NOTE | 2022-05-15 12:07 | P.PN ---
Subjective Date of Service: 05/15/22 Chief Complaint: Respiratory failure Patient's condition deteriorated became more unresponsive agitated to be intubated very hypoxic experience side effects from dexmedetomidine including bradycardia Review of Systems is unable to be obtained Physical Examination - Vital Signs Temperature: 97.4 F Blood Pressure: 112/59 Pulse: 112 Respirations: 21 Pulse Ox (%): 93 - Physical Exam General: Unresponsive Respiratory: Crackles/rales Cardiovascular: Regular rate/rhythm Capillary refill: <2 Seconds Gastrointestinal: Normal bowel sounds, Soft and benign Assessment And Plan - Current Problems (Diagnosis) (1) Pneumonia due to COVID-19 virus Current Visit: Yes Status: Acute Plan: Progression of pneumonia (2) Respiratory failure Current Visit: Yes Status: Acute Plan: Patient has hypoxic respiratory failure secondary to coronavirus infection progression on the chest x-ray patient is intubated is Dilaudid or propofol Acac ange doses reviewed Dobbhoff tube start tube feeds continue with low-dose prophylaxis no change in medication continue with dexamethasone IV Qualifiers: Chronicity: acute
[2022-05-15] MEDS ORDERED: Ringers Lactate 500 ML IV ONE (13:05)
--- NOTE | 2022-05-15 13:05 | RAD REPORT ---
EXAM DESCRIPTION: RAD - Abdomen 1 View (KUB) - 05/15/2022 12:54 pm CLINICAL HISTORY: OGT placement confirmation COMPARISON: No comparisons FINDINGS: OG tube has been placed. Tubing is curled in the stomach. Tip and side port are well positioned in the midportion of the stoma ch.
--- NOTE | 2022-05-15 13:54 | PN ---
Date of Progress Note: 05/15/2022 Subjective: The patient was admitted with acute kidney injury secondary to heat exertion, dehydration, and COVID. The patient yesterday had altered mental status, hypoxemia, transferred to ICU. His hypoxemia got worse. The patient was intubated today, required 70% of FiO2. I saw the patient after intubation. Objective: Vital Signs: Blood pressure 139/110, pulse of 98, afebrile. The patient is saturating 96 on 70% FiO2. Chest: Crackles. Heart: S1, S2. Systolic murmur. Abdomen: Soft, nontender. Extremity: No edema. Neuro: The patient sedated. Laboratory Data: WBC 8.8, H and H 13.6/40.9. Sodium 144, potassium 4.5, bicarb 27, BUN 34, creatinine 1.1, GFR of 59, calcium 9.2, phosphorus 3.5, magnesium 2.4. Chest x-ray; interstitial infiltration bilaterally. Current Medications: The patient on include; 1. Xarelto. 2. Aspirin. 3. Tylenol. 4. Geodon. 5. Seroquel. 6. Lasix 20 daily. 7. Dexamethasone. 8. Pepcid. Assessment And Plan: 1. Acute kidney injury secondary to prerenal, recovered, resolved, looked to me on the normal volume side. We will continue to monitor. The patient was started on Lasix yesterday by Pulmonary. We will follow up. 2. Hypertension, controlled, optimal. Continue current treatment. 3. Hypernatremia, resolved. 4. Rhabdomyolysis secondary to heat exertion, resolved. 5. COVID pneumonia, respiratory failure. We will follow up with Pulmonary. Time spent examining the patient [id number], reviewing the data, placing order, discussing with by bedside, discussing with staff member including charge nurse and nursing and hospitalist 35 minutes. DUSTIN Voice ID: [id number] Report ID: [id number] TONIA
[2022-05-15] MEDS: NOREPINEPHRINE BITARTRATE/D5W 4 MG/250 ML BAG IV SCH ×2 (14:24→22:49)
[2022-05-15] MEDS: HYDROMORPHONE HCL 2 MG/ML inj IV PRN ×2 (14:29→22:48)
[2022-05-15] MEDS ORDERED: LIDOCAINE 1% 20 ML MDV ONE (14:31)
[2022-05-15] MEDS ORDERED: VITAL AF 1,000 ML BOT RTH SCH (15:00)
--- NOTE | 2022-05-15 15:31 | RAD REPORT ---
EXAM DESCRIPTION: RAD - Chest Single View - 05/15/2022 3:19 pm CLINICAL HISTORY: PICC line placement COMPARISON: Portable May 15 FINDINGS: Portable chest was obtained following placement of a right upper extremity PICC line. The catheter tip is in the mid SVC.
[2022-05-15 15:42] LABS: Arterial Blood Carboxyhemoglob 0.2 % (0-1.5); Blood Gas Oxyhemoglobin 89.9 % (94-97); Blood O2 Saturation 91.1 % (92-98.5)
--- NOTE | 2022-05-15 17:24 | P.PN ---
Date of Service: 05/15/22 Subjective: hypoxic, continues to be agitated difficult to sedate - balancing with hypotension and heart rate SpO2 in low 80s, intubated this morning ROS: unable to be obtained Physical Exam: Gen: intubated/sedated HEENT: normal conjunctiva, sclera anicteric CV: sinus tachycardia, no edema Pulm: b/l crackles, on mech vent Abd: soft, nondistended Skin: no rashes/lesions Neuro: sedated, on vent Problem List acute Rhabdomyolysis s/p fall; resolved acute hypoxemic respiratory failure secondary to pneumonia due to COVID-19 virus Acute renal failure, prerenal DM2, non-insulin dependent acute Metabolic encephalopathy Elevated troponin; demand ischemia Dementia with behavioral disturbance acute rhabdo resolved renal function improved. nephrology following Patient mental status waxes and wanes Repeat chest x-ray 05/13 with worsening b/l pulm opacities. pulmonology consulted became more agitated/confused, combative, wouldn't leave oxygen on hypoxia worsened, patient was intubated morning of 05/15 battling blood pressure and sedation started levophed updated POA - daughter - Shelley Garcia - [phone] going forward, patient is DNR -no compressions, max out with 1 pressor patient expressed previously to daughter that he would not want to be on prolonged life support, refused SNF / group home in the past customer experience retail clerk consult, start tube feeds Blood cultures: No growth to date. transferred to ICU 05/14 or behavioral disturbance, needs more closer monitoring / sedation. intubated 05/15 pulm consulted, suspect due to covid pneumonia Insulin sliding scale for glucose management. Troponin mildly elevated but trended flat. Troponin elevation likely secondary to rhabdomyolysis / demand ischemia VTE: heparin subq Code: DNR Dispo: guarded prognosis, continue ICU level of care Time Spent Managing Pts Care (In Minutes): 45
[2022-05-15] MEDS: RIVAROXABAN 10 MG TABLET PO SCH (17:51)
[2022-05-15 18:24] LABS: Arterial Blood Carboxyhemoglob 0.5 % (0-1.5); Blood Gas Oxyhemoglobin 94.7 % (94-97); Blood O2 Saturation 96.1 % (92-98.5)
[2022-05-15] MEDS ORDERED: GLUCAGON 1 MG/VIAL IM PRN (20:03)
[2022-05-15] MEDS ORDERED: D50W 25 GM/50 ML SYRINGE IV PRN (20:03)
[2022-05-15] MEDS ORDERED: D10W 125 ML IV PRN (20:09)
[2022-05-15] MEDS ORDERED: dexAMETHasone 4 MG/ML VIAL IV SCH (21:00)
[2022-05-16] MEDS ORDERED: FENTANYL CITR 100 MCG/2 ML IV PRN (00:15)
[2022-05-16] MEDS ORDERED: HALOPERIDOL LACT 5 MG/ML INJ IV PRN (00:15)
--- NOTE | 2022-05-16 02:03 | OP ---
Date of Procedure: 05/15/2022 Surgeon: Yunier Murray MD Reason: The patient needs stat central line. History Of Present Illness: The patient is an 87-year-old gentleman with multiple medical problems. He is in the ICU with COVID pneumonia, intubated and just had episodes of hypotension requiring vaso pressors and he does not have central access. Therefore informed consent was obtained and then proce dure performed. Procedure In Detail: The patient was prepped and draped in the usual sterile fashion. Lidocaine 1% was infiltrated locally. An 18-gauge needle was used to access the right subclavian vein. Guidewire was passed. Tract dilated. Seldinger technique used and a triple-lumen catheter placed to 17 cm an d secured with 3-0 silk. Catheter was flushed with heparin and packed with heparin with good blood f low. Sterile dressing was applied. The patient tolerated the procedure in stable condition. Chest x-ray has been ordered. GOLD/KENZIE Voice ID: [id number] Report ID: [id number]
[2022-05-16 05:17] LABS: Absolute Lymphocytes (CBC) 0.6 K/uL (0.7-4.9); Hematocrit 35.7 % (39.6-49.0); Lymphocytes % 6.2 % (15.3-44.8); MCV 89.6 fL (80-100); MPV 9.8 fL (7.6-11.3); RBC Red Blood Cell Count 3.98 M/uL (4.33-5.43)
[2022-05-16 05:32] LABS: Albumin 1.9 g/dL (3.4-5.0); Bilirubin Total 0.8 mg/dL (0.2-1.0); Magnesium 2.3 mg/dL (1.8-2.4); Phosphorus 2.8 mg/dL (2.5-4.9); Potassium 3.8 mmol/L (3.5-5.1); Protein, Total 5.6 g/dL (6.4-8.2)
[2022-05-16 05:38] LABS: Arterial Blood Carboxyhemoglob 0.5 % (0-1.5); Blood Gas Oxyhemoglobin 95.1 % (94-97); Blood O2 Saturation 96.5 % (92-98.5)
[2022-05-16] MEDS: INSULIN -REGULAR HUMAN 50 UNIT/0.5 ML ML SQ SCH ×3 (05:40→17:01)
[2022-05-16] MEDS: LORazepam 2 MG/ML VIAL IV PRN ×3 (05:40→21:01)
[2022-05-16 05:45] LABS: Blood Morphology Comment NOTED (NOT SEEN); Burr Cells 2+; Platelet Estimate ADEQ
--- NOTE | 2022-05-16 05:57 | P.PN ---
Date of Service: 05/16/22 Subjective: remains on levo prn sedation UOP improving up to 90% FiO2 ROS: unable to be obtained Physical Exam: Gen: intubated/sedated HEENT: OG in place CV: sinus tachycardia, no edema Pulm: b/l crackles, on mech vent Abd: soft, nondistended Skin: no rashes/lesions Neuro: sedated, on vent Problem List acute hypoxemic respiratory failure secondary to pneumonia due to COVID-19 virus Acute renal failure, prerenal acute Rhabdomyolysis s/p fall; resolved DM2, non-insulin dependent acute Metabolic encephalopathy Elevated troponin; demand ischemia Dementia with behavioral disturbance acute rhabdo resolved renal function improved. nephrology following Patient mental status worsened, acute delirium on moderate-severe dementia Repeat chest x-ray 05/13 with worsening b/l pulm opacities. pulmonology consulted became more agitated/confused, combative, wouldn't leave oxygen on Hypoxia worsened, patient was intubated morning of 05/15 battling blood pressure and sedation started levophed going forward, patient is DNR -no compressions, max out with 1 pressor patient expressed previously to daughter that he would not want to be on prolonged life support, refused SNF / shelter in the past assistant principal consulted, started tube feeds Blood cultures: No growth to date. transferred to ICU 05/14, intubated 05/15 pulm consulted, suspect due to covid pneumonia Insulin sliding scale for glucose management. Troponin mildly elevated but trended flat. Troponin elevation likely secondary to rhabdomyolysis / demand ischemia Code: DNR Dispo: guarded prognosis, continue ICU level of care POA - daughter Tam Garcia - [phone] Time Spent Managing Pts Care (In Minutes): 45
[2022-05-16] MEDS: HYDROMORPHONE HCL 2 MG/ML inj IV PRN ×3 (08:02→21:35)
--- NOTE | 2022-05-16 08:44 | RAD REPORT ---
EXAM DESCRIPTION: RAD - Chest Single View - 05/16/2022 6:13 am CLINICAL HISTORY: ventilator/covid Chest pain. COMPARISON: Chest Single View dated 05/15/2022; Abdomen 1 View (KUB) dated 05/15/2022; Chest Single View dated 05/15/2022; Chest Single View dated 05/15/2022 FINDINGS: Portable technique limits examination quality. Tip of the endotracheal tube is above the alise. Right-sided venous catheter its tip in the SVC. Ent nico tube descends into the stomach. Moderate bilateral pulmonary opacities have not significantly ch anged since comparative study. The heart is normal in size.
[2022-05-16] MEDS ORDERED: FAMOTIDINE 20 MG/2 ML VIAL IV SCH ×2 (09:00)
[2022-05-16] MEDS ORDERED: POTASSIUM 25 MEQ EFFERV TAB PO ONE (09:00)
[2022-05-16] MEDS: ASPIRIN 81 MG CHEWABLE TABLET PO SCH (09:31)
[2022-05-16] MEDS: FUROSEMIDE 20 MG/ 2ML VIAL IV SCH (09:32)
[2022-05-16] MEDS: CYANOCOBALAMIN 1,000 MCG TAB PO SCH (09:35)
[2022-05-16] MEDS: FAMOTIDINE 20 MG/2 ML VIAL IV SCH ×2 (09:37→21:01)
[2022-05-16] MEDS: NOREPINEPHRINE BITARTRATE/D5W 4 MG/250 ML BAG IV SCH ×2 (09:37→20:59)
[2022-05-16] MEDS ORDERED: NA CHLORIDE 0.9% 500 ML IV SCH (12:00)
--- NOTE | 2022-05-16 12:45 | P.PN ---
Subjective Date of Service: 05/16/22 Chief Complaint: Respiratory failure and refractory shock Patient's condition has deteriorated he is now DO NOT RESUSCITATE currently on maximum vasopressor on 90% FiO2 unresponsive agitated quiring as needed Dilaudid Review of Systems is unable to be obtained Physical Examination - Vital Signs Temperature: 97.6 F Blood Pressure: 108/53 Pulse: 83 Respirations: 20 Pulse Ox (%): 97 - Physical Exam General: Unresponsive Respiratory: Clear to auscultation bilaterally, Diminished Assessment And Plan - Current Problems (Diagnosis) (1) Respiratory failure Current Visit: Yes Status: Acute Plan: Patient is currently in refractory shock ARDS oxygen requirements over 90% currently DO NOT RESUSCITATE labs reviewed renal function is worse endotracheal tube is satisfactory x-ray shows diffuse bilateral interstitial lung disease consistent with coronavirus pneumonia prognosis poor Acacian and labs chest x- rays all reviewed PEEP has been increased to 10 cm Qualifiers: Chronicity: acute
--- NOTE | 2022-05-16 15:51 | PN ---
Date of Progress Note: 05/16/2022 Subjective: The patient was admitted with COVID, rhabdo, acute kidney injury. The patient had respiratory distress. The patient intubated. The patient apparently over the night had low blood pressure, started on pressor. Central line was inserted. Physical Examination: Vital Signs: When I saw the patient; blood pressure 108/53, pulse of 83. The patient's urine output of 725. Chest: Clear to auscultation. Heart: S1, S2. Systolic murmur. Abdomen: Soft, nontender. Extremity: No edema. Neuro: The patient has been sedated. Laboratory Data: WBC 9.6, H and H 12/35.7, platelet 206. Sodium 143, potassium 3.8, bicarb 27, BUN 45, creatinine 1.4, GFR down to 46, calcium 8.5, phosphorus 2.8, magnesium 2.3. Chest x-ray; interstitial infiltration bilateral. I do not see significant congestion. Current Medications: The patient on include; 1. Aspirin. 2. Levophed. 3. Xarelto. 4. Sedation. 5. Lasix 20 daily. 6. Pepcid. 7. Fentanyl. 8. Hydromorphone. 9. KCl. Assessment And Plan: 1. Acute kidney injury secondary to poor perfusion, ATN secondary to low blood pressure, superimposed with over-diuresis, superimposed with toxic ATN secondary to sepsis. I am going to go ahead and discontinue Lasix. I will give the patient normal saline of 500 mL and we will follow up the patient. 2. Hypertension, currently blood pressure on the lower side, on Levophed. Hold all blood pressure medications, discontinue Lasix. 3. Hypernatremia secondary to depletional. Start the patient on free water 100 every 6 hours. 4. Rhabdomyolysis, resolved. 5. Fall, heat exertion, resolved. 6. COVID as by primary. 7. Respiratory failure secondary to COVID pneumonia. We will follow up with Pulmonary. 8. Hypokalemia, currently kidney function deteriorating, potassium 3.8. I do not see the need for any replacement. We will hold on the supplement. Time spent examining the patient [id number], reviewing the data, placing order, discussing with by bedside, discussing with staff member including charge nurse and nursing and hospitalist 35 minutes. DUSTIN Voice ID: [id number] Report ID: [id number] TONIA
[2022-05-16] MEDS: RIVAROXABAN 10 MG TABLET PO SCH (16:01)
[2022-05-16] MEDS ORDERED: AMIODARONE HCL 150 MG in D5W 100 ML IV STA (21:26)
[2022-05-16] MEDS ORDERED: NA CHLORIDE 0.9% 250 ML IV ONE (21:43)
[2022-05-16] MEDS ORDERED: AMIODARONE HCL 150 MG/3 ML INJ IV ONE (21:45)
[2022-05-16] MEDS ORDERED: AMIODARONE HCL 900 MG in Dextrose 5%-Water 482 ML IV SCH (22:00)
[2022-05-16 22:15] LABS: Magnesium 2.3 mg/dL (1.8-2.4); Potassium 3.8 mmol/L (3.5-5.1)
[2022-05-17] MEDS: HYDROMORPHONE HCL 2 MG/ML inj IV PRN ×4 (04:41→19:32)
[2022-05-17 05:16] VITALS: BMI 25.0
[2022-05-17 05:28] LABS: Albumin 1.7 g/dL (3.4-5.0); Bilirubin Total 0.7 mg/dL (0.2-1.0); Magnesium 2.1 mg/dL (1.8-2.4); Phosphorus 2.2 mg/dL (2.5-4.9); Protein, Total 5.7 g/dL (6.4-8.2)
[2022-05-17 05:42] LABS: Absolute Lymphocytes (CBC) 0.7 K/uL (0.7-4.9); Hematocrit 34.9 % (39.6-49.0); Lymphocytes % 5.3 % (15.3-44.8); MCV 90.7 fL (80-100); MPV 9.6 fL (7.6-11.3); RBC Red Blood Cell Count 3.85 M/uL (4.33-5.43)
--- NOTE | 2022-05-17 05:48 | P.PN ---
Date of Service: 05/17/22 Subjective: afib, last night on amio and levophed worsening inflammatory markers, increased oxygen requirement ROS: unable to be obtained Physical Exam: Gen: intubated/sedated HEENT: OG in place CV: afib, no edema Pulm: b/l crackles, on mech vent Abd: soft, nondistended Skin: no rashes/lesions Neuro: sedated, on vent Problem List acute hypoxemic respiratory failure secondary to pneumonia due to COVID-19 virus Acute renal failure, prerenal acute Rhabdomyolysis s/p fall; resolved DM2, non-insulin dependent acute Metabolic encephalopathy Elevated troponin; demand ischemia Dementia with behavioral disturbance acute rhabdo resolved renal function improved. nephrology following Patient mental status worsened, acute delirium on moderate-severe dementia Repeat chest x-ray 05/13 with worsening b/l pulm opacities. pulmonology consulted became more agitated/confused, combative, wouldn't leave oxygen on Hypoxia worsened, patient was intubated morning of 05/15 battling blood pressure and sedation started levophed developed afib with rvr started amio drip last night; no significant change patient overall worsening discussed with shavonne - RomanaRadha VINCENT; expressed at this point would be most in line with his wishes for comfort measures only Code: DNR Dispo: continue current treatment, no escalation. hospice consult, comfort measures/withdrawal of care once paperwork completed MELISA - shavonne Turcios Shelley Garcia - [phone] Time Spent Managing Pts Care (In Minutes): 45
[2022-05-17] MEDS: NOREPINEPHRINE BITARTRATE/D5W 4 MG/250 ML BAG IV SCH ×2 (05:59→13:22)
[2022-05-17] MEDS: INSULIN -REGULAR HUMAN 50 UNIT/0.5 ML ML SQ SCH ×4 (06:08→17:04)
[2022-05-17] MEDS: ASPIRIN 81 MG CHEWABLE TABLET PO SCH (08:04)
[2022-05-17] MEDS: FAMOTIDINE 20 MG/2 ML VIAL IV SCH ×2 (08:04→19:57)
[2022-05-17] MEDS: CYANOCOBALAMIN 1,000 MCG TAB PO SCH (08:04)
[2022-05-17] MEDS: LORazepam 2 MG/ML VIAL IV PRN ×3 (08:15→19:32)
--- NOTE | 2022-05-17 08:22 | RAD REPORT ---
EXAM DESCRIPTION: RAD - Chest Single View - 05/17/2022 5:38 am CLINICAL HISTORY: ventilator/covid Chest pain. COMPARISON: Chest Single View dated 05/16/2022; Chest Single View dated 05/15/2022; Abdomen 1 View (KUB) dated 05/15/2022; Chest Single View dated 05/15/2022 FINDINGS: Portable technique limits examination quality. Tip of the endotracheal tube is at the level of the superior aortic arch. Right-sided venous catheter its tip in the SVC. Enteric tube coils in the upper abdomen. Moderate bilateral pulmonary opacities are present, unchanged. The heart is mildly prominent.
[2022-05-17 09:03] LABS: Blood Morphology Comment NOT SEEN (NOT SEEN); Platelet Estimate ADEQ; White Blood Cell Scan OK (OK)
--- NOTE | 2022-05-17 10:37 | P.PN ---
Subjective Date of Service: 05/17/22 Chief Complaint: Respiratory failure and refractory shock Patient is not doing well maximal support 100% FiO2 and vasopressors went into A. fib started on amiodarone Review of Systems is unable to be obtained Physical Examination - Vital Signs Temperature: 97.6 F Blood Pressure: 116/49 Pulse: 137 Respirations: 20 Pulse Ox (%): 91 - Physical Exam General: Unresponsive Respiratory: Clear to auscultation bilaterally, Diminished Cardiovascular: No edema, Regular rate/rhythm Assessment And Plan - Current Problems (Diagnosis) (1) Respiratory failure Current Visit: Yes Status: Acute Plan: Patient has respiratory failure from coronavirus refractory shock prognosis is poor has renal failure medication labs all reviewed Qualifiers: Chronicity: acute
--- NOTE | 2022-05-17 12:41 | P.PN ---
Subjective Date of Service: 05/17/22 Chief Complaint: Respiratory failure and refractory shock Subjective: Other (Remains bedridden.) Physical Examination - Vital Signs Temperature: 97.6 F Blood Pressure: 116/49 Pulse: 137 Respirations: 20 Pulse Ox (%): 91 - Physical Exam General: Other (appears acutely ill) HEENT: Atraumatic, Normocephalic Neck: Supple Respiratory: Other (symmetric chest expansion) Cardiovascular: No rubs, No murmurs Gastrointestinal: Soft and benign Musculoskeletal: No clubbing Integumentary: No warmth Neurological: Normal tone Urinary: Other (no bladder distention) External genitalia: Deferred Rectal: Deferred Assessment And Plan - Plan 1. Acute kidney injury secondary to rhabdomyolysis + ischemic/septic ATN + diuretic use. IV fluid bolus prn. Monitor I/O, renal panel. 2. Septic shock. On IV vasopressor. Titrate pressor to MAP > 65. 3. Rhabdomyolysis secondary to mechanical fall. Resolved. 4. Hypernatremia. Improved. Cont current fluid intake rates. 5. Acute respiratory failure 2/2 COVID pneumonia. Mngt per primary team.
--- NOTE | 2022-05-17 12:42 | CON ---
Date of Consultation: 05/17/2022 Reason For Consultation: He was admitted for rhabdomyolysis. I am seeing him for atrial fibrillatio n, that was new onset. History Of Present Illness: The patient is 87 years old, has a history of diabetes and dyslipidemia. Came in with rhabdomyolysis, respiratory failure. He was on the ventilator with a PO2 of 92, pCO2 of 33, pH of 7.45. He had a creatinine of 1.67, elevated white count, elevated glucose, elevated CRP , he is COVID positive. Currently atrial fibrillation with rapid ventricular response, metoprolol di d not help. The Cardizem did not help. He is now on amiodarone drip and is on Levophed, Lasix, aspirin. He is on Xarelto. Past Medical History: As stated above. Allergies: NONE. Review of Systems: Negative. Social History: Positive for being a do not resuscitate. Medications: At home include aspirin, Lipitor, metformin. Physical Examination: General: Patient is intubated. Vital Signs: Heart rate of 141. Afebrile. HEENT: Negative. Neck: Supple. No bruit. Chest: Reveals crackles throughout. Cardiac: Revealed atrial fibrillation. Abdomen: Benign. Extremities: Revealed no clubbing, cyanosis, or edema. Diagnostic Data: As stated earlier. Impression And Plan: 1.COVID. Patient requiring intubation secondary to respiratory failure. 2.Atrial fibrillation, new onset, on amiodarone. Echocardiogram is pending. I agree with his prese nt regimen. 3.Hypertension, on Levophed. 4.Renal insufficiency. 5.Diabetes, poorly controlled. 6.Dyslipidemia. For now, we will continue the amiodarone IV and we may have to increase the rate. Obtain a 2D echoca rdiogram. Continue anticoagulation. I will continue to follow. AUSTIN/KENZIE Voice ID: [id number] Report ID: [id number]
--- NOTE | 2022-05-17 15:08 | EKG ---
Test Date: 2022-05-16 Test Time: 21:58:01 Merchandise Support Associate: RT Ray MEASUREMENT RESULTS: Intervals: Rate: 140 OR: QRSD: 96 QT: 356 QTc: 543 Tarpley: P: OR: QRS: 72 T: 105 INTERPRETIVE STATEMENTS: Atrial flutter with variable AV block Possible Inferior infarct, age undetermined Anterior infarct, age undetermined T wave abnormality, consider lateral ischemia Abnormal ECG Compared to ECG 05/07/2022 15:33:56 T-wave abnormality now present Possible ischemia now present Sinus rhythm no longer present Atrial premature complex(es) no longer present Ventricular premature complex(es) no longer present Myocardial infarct finding still present Electronically Signed On 05-17-22 15:07:34 CDT by Don Hancock
[2022-05-17 16:57] VITALS: O2SAT 91
[2022-05-17] MEDS: RIVAROXABAN 10 MG TABLET PO SCH (17:05)
--- NOTE | 2022-05-17 22:42 | P.DS ---
Admission Date: 05/07/22 Discharge Date: 05/17/22 Disposition: Discharge Condition: Reason for Admission: Respiratory failure and refractory shock - Problems (1) Respiratory failure Current Visit: Yes Status: Acute Qualifiers: Chronicity: acute Respiratory failure complication: hypoxia Qualified Code(s): J96.01 - Acute respiratory failure with hypoxia (2) Dementia with behavioral disturbance Current Visit: Yes Status: Acute Qualifiers: Dementia type: unspecified type Qualified Code(s): F03.91 - Unspecified dementia with behavioral disturbance (3) Diabetes mellitus type 2 in nonobese Current Visit: Yes Status: Chronic (4) Metabolic encephalopathy Current Visit: Yes Status: Acute (5) Pneumonia due to COVID-19 virus Current Visit: Yes Status: Acute (6) Acute renal failure Current Visit: Yes Status: Acute Qualifiers: Acute renal failure type: unspecified Qualified Code(s): N17.9 - Acute kidney failure, unspecified Brief History of Present Illness: 79-year-old gentleman with a history of diabetes mellitus on metformin and hyperlipidemia was brought to the emergency department for evaluation for fall. Patient's son by his bedside gave the history. According to the son family tried reaching him by phone call for 3 days but no answer. Sons girlfriend later checked on him and found him on the floor, covered with urine, unresponsive. EMS was called and patient was brought to the emergency department. Blood sugar when EMS found him was around 130. No witnessed seizures. According to family, patient at baseline interact and communicate appropriately. He lives alone. Family mentioned that they recently noted he has been having memory issues. Work-up in the emergency department demonstrated markedly elevated CK, acute renal failure indicating rhabdomyolysis. Chest x- ray and CT scan suggest possible bibasilar pneumonia. He has no leukocytosis, he is normotensive, no recorded fever and does not meet criteria for sepsis. COVID-19 screen came back positive. Patient was hospitalized for further management of rhabdomyolysis with LARRY and COVID-19 pneumonia. Hospital Course: Throughout stay, patient's mental status worsened- acute delirium on moderate- severe dementia. His repeat chest x-ray on 05/13 showed worsening bilateral pulmonary opacities. He became more agitated/confused, combative, and wouldn't leave oxygen on. His hypoxia worsened and subsequently was intubated on the morning of 05/15. Patient persistently hypotensive and started on levophed. He later developed afib rvr and was started on amiodarone drip without significant change. Discussed with daughter, Shelley VINCENT, patient's worsening condition. She expressed that comfort measures only would be what Mr. Galo would have wanted given his prognosis. Hospitalist called at 2219 and notified that patient was extubated at 1948 and at 2204. Time of of Bj Galo pronounced on 05/17/2022 at 2205. On examination, Mr. Galo did not respond to verbal or physical stimuli. Absent pulse/heart sounds, and no spontaneous respirations/breath sounds. Pupils are fixed and dilated. Daughter called and notified at 2234. Vital Signs/Physical Exam: Temp Pulse Resp BP Pulse Ox 100.3 F 126 H 21 H 89/44 L 37 L 05/17/22 20:00 05/17/22 20:00 05/17/22 20:00 05/17/22 20:00 05/17/22 20:00 General: Other (Does not respond to verbal or physical stimuli.) HEENT: Other (Pupils fixated and dilated, bilaterally. ) Respiratory: Other (No spontaneous respirations/breath sounds.) Cardiovascular: Other (Absent pulse. Absent heart sounds) Laboratory Data at Discharge: WBC 12.5 K/uL (4.3-10.9) H D 05/17/22 04:40 Hgb 11.7 g/dL (13.6-17.9) L 05/17/22 04:40 Hct 34.9 % (39.6-49.0) L 05/17/22 04:40 Plt Count 207 K/uL (152-406) 05/17/22 04:40 Sodium 141 mmol/L (136-145) 05/17/22 04:40 Potassium 4.0 mmol/L (3.5-5.1) 05/17/22 04:40 BUN 43 mg/dL (7-18) H 05/17/22 04:40 Creatinine 1.67 mg/dL (0.55-1.3) H 05/17/22 04:40 Glucose 232 mg/dL (74-106) H 05/17/22 04:40 Phosphorus 2.2 mg/dL (2.5-4.9) L 05/17/22 04:40 Magnesium 2.1 mg/dL (1.8-2.4) 05/17/22 04:40 Total Bilirubin 0.7 mg/dL (0.2-1.0) 05/17/22 04:40 AST 49 U/L (15-37) H 05/17/22 04:40 ALT 37 U/L (12-78) 05/17/22 04:40 Alkaline Phosphatase 105 U/L (45-117) 05/17/22 04:40 Triglycerides 170 mg/dL (<150) H 05/08/22 02:05 Cholesterol 75 mg/dL (<200) 05/08/22 02:05 HDL Cholesterol 25 mg/dL (40-60) L 05/08/22 02:05 Cholesterol/HDL Ratio 3.00 05/08/22 02:05 Home Medications: Aspirin Chewable [Aspirin Chewable*] 324 tab PO DAILY 05/09/22 Atorvastatin Calcium [Lipitor] 40 mg PO BEDTIME 05/09/22 Cyanocobalamin (Vitamin B-12) [Vitamin B12] 1,000 mcg PO DAILY 05/09/22 Metformin HCl [Glucophage*] 500 mg PO BIDWM 05/09/22 Prevagen 1 tab PO DAILY 05/09/22 Glucerna Shake [Glucerna*] 237 ml PO BID #20 can 05/11/22 New Medications: Glucerna Shake [Glucerna*] 237 ml PO BID #20 can Time spent managing pt's care (in minutes): 30
[2022-05-18 06:16] VITALS: BP 116/49; TEMP 97.6
--- NOTE | 2022-05-20 08:37 | ECHO ---
HEIGHT: 5 ft 8 in WEIGHT: 164 lb 4 oz DATE OF STUDY: 05/17/[address]: Michael Light MD 2-DIMENSIONAL: YES M.MODE: YES DOPPLER: YES COLOR FLOW: YES TDS: PORTABLE: YES DEFINITY: BUBBLE STUDY: DIAGNOSIS: ATRIAL FIBRILLATION CARDIAC HISTORY: CATHERIZATION: NO SURGERY: NO PROSTHETIC VALVE: NO PACEMAKER: NO MEASUREMENTS (cm) DIASTOLIC (NORMALS) SYSTOLIC (NORMALS) IVSd (0.6-1.2) LA Diam (1.9-4.0) LVEF 40-50% LVIDd (3.5-5.7) LVIDs (2.0-3.5) %FS % LVPWd (0.6-1.2) Ao Diam (2.0-3.7) 2 DIMENSIONAL ASSESSMENT: RIGHT ATRIUM: LEFT ATRIUM: RIGHT VENTRICLE: LEFT VENTRICLE: TRICUSPID VALVE: MITRAL VALVE: PULMONIC VALVE: AORTIC VALVE: PERICARDIAL EFFUSION: AORTIC ROOT: LEFT VENTRICULAR WALL MOTION: MILD GLOBAL HYPOKINESIS DOPPLER/COLOR FLOW: NORMAL COMMENTS: TECHNICALLY DIFFICULT STUDY. MILD GLOBAL HYPOKINESIS - 45-50%. ATRIAL FIBRILLATION. NO THROMBUS. TECHNOLOGIST: WES MARTINEZ
== END 2022-05-17 22:05 | disposition expired | DRG 208 ==
LOC: ER 14:41 → ERHOLD 18:14 → 4TH 05-08 15:56 → 3RD-ICU 05-14 19:13
PROVIDERS: ADMIT Internal Medicine; ATTEND Internal Medicine
PROC: 02HV33Z Insertion of Infusion Device into Superior Vena Cava, Percutaneous Approach (ICD-10-PCS; principal; 2022-05-15)
PROC: 5A1945Z Respiratory Ventilation, 24-96 Consecutive Hours (ICD-10-PCS; 2022-05-15)
PROC: 3E043XZ Introduction of Vasopressor into Central Vein, Percutaneous Approach (ICD-10-PCS; 2022-05-15)
PROC: 0BH17EZ Insertion of Endotracheal Airway into Trachea, Via Natural or Artificial Opening (ICD-10-PCS; 2022-05-15)
DX: U07.1 COVID-19 (principal); G93.41 Metabolic encephalopathy; J12.82 Pneumonia due to coronavirus disease 2019; J80 Acute respiratory distress syndrome; N17.0 Acute kidney failure with tubular necrosis; E43 Unspecified severe protein-calorie malnutrition; M62.82 Rhabdomyolysis; E87.0 Hyperosmolality and hypernatremia; F03.91 Unspecified dementia, unspecified severity, with behavioral disturbance; I24.8 Other forms of acute ischemic heart disease; E78.5 Hyperlipidemia, unspecified; E11.40 Type 2 diabetes mellitus with diabetic neuropathy, unspecified; E87.6 Hypokalemia; E86.0 Dehydration; R45.1 Restlessness and agitation; R57.8 Other shock; I48.91 Unspecified atrial fibrillation; I95.9 Hypotension, unspecified; R01.1 Cardiac murmur, unspecified; Z78.1 Physical restraint status; Z66 Do not resuscitate; Z79.82 Long term (current) use of aspirin; Z68.25 Body mass index [BMI] 25.0-25.9, adult
CPT/HCPCS: 36415; 51702; 70450; 71045; 71046; 72125; 72170; 74018; 74176; 80048; 80053; 80061; 80076; 81003; 81015; 82140; 82550; 82728; 82805; 82947; 83605; 83735; 84100; 84145; 84443; 84484; 85025; 85379; 86140; 87040; 87811; 93005; 93306; 94002; 94003; 94760; 96365; 96366; 96367; 97116; 97161; 97530; 99285; J0282; J0330; J0456; J1170; J1630; J1644; J1815; J1940; J2704; J2920; J3010; J3480; J3486; J7030; J7050; J7060; J7120; J7512; J7799